=== PATIENT | male | born 1935 | race Caucasian/White ===

== ENCOUNTER → 2017-05-18 | Outpatient (CLI) | payer MEDICARE | END | disposition home or self-care (01) | LOC: CVU 12:09 | PROVIDERS: ATTEND Internal Medicine Cardiovascular Disease | DX: I08.2 Rheumatic disorders of both aortic and tricuspid valves (principal); I65.23 Occlusion and stenosis of bilateral carotid arteries; I10 Essential (primary) hypertension; E78.5 Hyperlipidemia, unspecified; H54.62 Unqualified visual loss, left eye, normal vision right eye; Z86.73 Personal history of transient ischemic attack (TIA), and cerebral infarction without residual deficits | CPT/HCPCS: 93306; 93880 ==

== ENCOUNTER → 2017-11-10 | Outpatient (CLI) | payer MEDICARE | END | disposition home or self-care (01) | LOC: CFH 12:19 | PROVIDERS: ATTEND Internal Medicine Cardiovascular Disease | DX: I35.2 Nonrheumatic aortic (valve) stenosis with insufficiency (principal); G45.9 Transient cerebral ischemic attack, unspecified; I10 Essential (primary) hypertension; E78.5 Hyperlipidemia, unspecified | CPT/HCPCS: 93306 ==

== ENCOUNTER 2017-11-16 09:19 | Day surgery (SDC) | payer MEDICARE ==
[~2017-11-16] VITALS: Ht 180.3 cm; Wt 84.0 kg
[2017-11-16] MEDS ORDERED: LOSA1TAB7 PO (10:17)
[2017-11-16] MEDS ORDERED: ATOR20TA PO (10:17)
[2017-11-16] MEDS ORDERED: CLOP75TA52 PO (10:17)
[2017-11-16] MEDS ORDERED: SODIUM CHLORIDE 0.9% 1,000 ML IV ONE (10:18)
[2017-11-16 10:21] VITALS: BP 137/78
[2017-11-16] MEDS ORDERED: VERAPAMIL 2.5 MG/ML, 2ML ONE (11:41)
[2017-11-16] MEDS ORDERED: FENTANYL PF 100 MCG/2ML ONE (11:41)
[2017-11-16] MEDS ORDERED: MIDAZOLAM 1 MG/ML, 2ML ONE (11:41)
[2017-11-16] MEDS ORDERED: LIDOCAINE 2%, 20ML ONE (11:42)
[2017-11-16] MEDS ORDERED: NITROGLYCERIN 5 MG/ML, 10ML ONE (11:42)
[2017-11-16] MEDS ORDERED: HEPARIN 1,000 UNITS/ML, 10ML ONE (11:42)
[2017-11-16] MEDS ORDERED: DIPHENHYDRAMINE 50 MG/ML, 1ML ONE (11:42)
[2017-11-16] MEDS ORDERED: methylPREDNISolone SOD SUCC 125 MG/2 ML ONE (11:42)
[2017-11-16] MEDS ORDERED: BIVALIRUDIN 250 MG ONE (11:42)
== END 2017-11-16 14:56 ==
LOC: CACL 09:19
PROVIDERS: ATTEND Internal Medicine Cardiovascular Disease
DX: I25.10 Atherosclerotic heart disease of native coronary artery without angina pectoris (principal)
CPT/HCPCS: 93454; 99156; C1769; C1894; J1200; J1644; J2250; J2930; J3010; J3490; Q9967; J0583

== ENCOUNTER → 2017-12-16 | Outpatient (CLI) | payer MEDICARE ==
[~2017-12-16] MED LIST: ATOR20TA PO; CLOP75TA52 PO; DIPHENHYDRAMINE 50 MG/ML, 1ML IVPush PRN; DIPHENHYDRAMINE 50 MG/ML, 1ML ONE; LOSA1TAB7 PO; METOPROLOL 1 MG/ML, 5ML IVPush ONE; METOPROLOL 1 MG/ML, 5ML ONE; OMNIPAQUE 350 MG/ML, 150 ML BOTTLE ONE; methylPREDNISolone SOD SUCC 125 MG/2 ML IVPush PRN; methylPREDNISolone SOD SUCC 125 MG/2 ML ONE
[2017-12-16 14:24] VITALS: BP 151/81
== END | disposition home or self-care (01) ==
LOC: RAD 13:19
PROVIDERS: ATTEND Internal Medicine Cardiovascular Disease
DX: J84.10 Pulmonary fibrosis, unspecified (principal); M48.56XA Collapsed vertebra, not elsewhere classified, lumbar region, initial encounter for fracture; N28.1 Cyst of kidney, acquired; K57.30 Diverticulosis of large intestine without perforation or abscess without bleeding; I35.0 Nonrheumatic aortic (valve) stenosis; M41.86 Other forms of scoliosis, lumbar region
CPT/HCPCS: 71275; 74174; 94060; 94726; 94729; J1200; J2930; Q9967

== ENCOUNTER 2018-01-12 19:37 | Inpatient (IN) | payer MEDICARE ==
[~2018-01-12] VITALS: Ht 180.3 cm; Wt 85.6 kg
[~2018-01-12 19:37] MED LIST changes: +ASPI-621 PO; -DIPHENHYDRAMINE 50 MG/ML, 1ML IVPush PRN; -DIPHENHYDRAMINE 50 MG/ML, 1ML ONE; -METOPROLOL 1 MG/ML, 5ML IVPush ONE; -METOPROLOL 1 MG/ML, 5ML ONE; -OMNIPAQUE 350 MG/ML, 150 ML BOTTLE ONE; -methylPREDNISolone SOD SUCC 125 MG/2 ML IVPush PRN; -methylPREDNISolone SOD SUCC 125 MG/2 ML ONE
[2018-01-12] MEDS ORDERED: ASPIRIN 81 MG TABLET CHEW PO ONE (20:00)
[2018-01-12] MEDS ORDERED: SODIUM CHLORIDE FLUSH 10ML SYR IVF ONE (20:00)
[2018-01-12 20:11] LABS: MEAN CORPUSCULAR HEMOGLOBIN 31.4 pg (27.5-34.5); MEAN CORPUSCULAR HGB CONC 33.5 g/dL (33.2-36.2); MEAN CORPUSCULAR VOLUME 93.8 fL (81-97); MEAN PLATELET VOLUME 7.2 fL (7.4-10.4); PLATELET COUNT 565 x10^3/uL (130-400); RED BLOOD COUNT 5.55 x10^6/uL (4.38-5.82); RED CELL DISTRIBUTION WIDTH 15.1 % (9.4-14.8)
[2018-01-12 20:19] LABS: INTERNATIONAL NORMALIZED RATIO 1.06 (0.93-1.1)
[2018-01-12 20:21] LABS: ALANINE AMINOTRANSFERASE 24 U/L (12-78); ALBUMIN 3.8 g/dL (3.4-5.0); ANION GAP 6 mmol/L (5-15); CALCIUM 8.9 mg/dL (8.5-10.1); CHLORIDE 110 mmol/L (98-107); CREATININE 1.27 mg/dL (0.7-1.3)
[2018-01-12 20:25] LABS: ALKALINE PHOSPHATASE 140 U/L (45-117); TOTAL PROTEIN 7.3 g/dL (6.4-8.2)
[2018-01-12] MEDS ORDERED: ASPIRIN 81 MG TABLET CHEW ONE (20:25)
[2018-01-12 20:39] LABS: MD YES
[2018-01-12 20:41] LABS: BAND#(MANUAL) 0.85 x10^3/uL; BANDS%(MANUAL) 4 % (0-7); LYMPH#(MANUAL) 2.56 x10^3/uL (1-3.4); LYMPHS% (MANUAL) 12 % (22-44); MONOS#(MANUAL) 0.21 x10^3/uL (0.3-2.7); MONOS% (MANUAL) 1 % (2-9); SEG#(MANUAL) 17.68 x10^3/uL (1.8-6.8); SEGS% (MANUAL) 83 % (42-75)
[2018-01-12 20:42] LABS: <PLATELET ESTIMATE> INCREASED; <PLT MORPHOLOGY> NORMAL PLT MORPH; <RBC MORPHOLOGY> NORMAL
[2018-01-12] MEDS ORDERED: OMNIPAQUE 350 MG/ML, 100ML BOTTLE ONE (21:27)
[2018-01-12] MEDS ORDERED: SODIUM CHLORIDE FLUSH 10ML SYR IVF PRN (22:00)
[2018-01-12] MEDS ORDERED: morphine SULFATE 10 MG/ML, 1ML IVPush PRN (22:30)
[2018-01-12] MEDS ORDERED: POLYETHYLENE GLYCOL 17 GM PACKET PO PRN (22:30)
[2018-01-12] MEDS ORDERED: ACETAMINOPHEN 325 MG TABLET PO PRN (22:30)
[2018-01-12] MEDS ORDERED: hydrALAzine 20 MG/ML, 1ML IVPush PRN (22:30)
[2018-01-12] MEDS ORDERED: ENALAPRILAT 1.25 MG/ML, 2ML IVPush PRN (22:30)
[2018-01-12] MEDS ORDERED: ONDANSETRON 2MG/ML, 2ML IVPush PRN (22:30)
[2018-01-12] MEDS ORDERED: OXYcodone IR 5MG TABLET PO PRN (22:30)
[2018-01-12] MEDS ORDERED: BISACODYL 10 MG SUPP PR PRN (22:30)
[2018-01-12 22:32] VITALS: BP 178/81
[2018-01-12] MEDS ORDERED: CARVEDILOL 6.25 MG TABLET ONE (22:49)
[2018-01-12] MEDS ORDERED: ATORVASTATIN 20 MG TABLET ONE (22:51)
[2018-01-12 22:52] LABS: FREE T4 (FREE THYROXINE) 1.1 ng/dL (0.76-1.46); THYROID STIMULATING HORMONE 1.85 mIU/L (0.358-3.740)
[2018-01-12] MEDS: HEPARIN 5,000 UNITS/ML, 1ML SQ SCH (23:05)
[2018-01-12] MEDS: CARVEDILOL 6.25 MG TABLET PO SCH (23:05)
[2018-01-12] MEDS: ATORVASTATIN 20 MG TABLET PO SCH (23:05)
[2018-01-12 23:10] LABS: HEMOGLOBIN A1C 5.6 % (4.2-6.3)
[2018-01-12 23:31] VITALS: BP 163/82
[2018-01-13 01:13] VITALS: BP 138/77
[2018-01-13 01:26] LABS: MICROSCOPIC NOT IND
[2018-01-13 01:36] LABS: CULTURE INDICATED? NO
[2018-01-13 05:46] LABS: MEAN CORPUSCULAR HGB CONC 33.7 g/dL (33.2-36.2); MEAN CORPUSCULAR VOLUME 92.1 fL (81-97); MEAN PLATELET VOLUME 7.2 fL (7.4-10.4); PLATELET COUNT 489 x10^3/uL (130-400); RED BLOOD COUNT 5.09 x10^6/uL (4.38-5.82); RED CELL DISTRIBUTION WIDTH 15.2 % (9.4-14.8)
[2018-01-13 05:51] LABS: ALANINE AMINOTRANSFERASE 31 U/L (12-78); ALBUMIN 3.1 g/dL (3.4-5.0); ANION GAP 9 mmol/L (5-15); CALCIUM 8.2 mg/dL (8.5-10.1); CHLORIDE 109 mmol/L (98-107)
[2018-01-13 06:06] LABS: ALKALINE PHOSPHATASE 129 U/L (45-117); BILIRUBIN,TOTAL 1.1 mg/dL (0.2-1.0); CHOL/HDL RATIO 2.5; CHOLESTEROL, TOTAL 140 mg/dL (140-239); CREATININE 1.04 mg/dL (0.7-1.3); HDL CHOL % 41 % (26-37); HDL CHOLESTEROL (DIRECT) 57 mg/dL (40-60); LDL CHOLESTEROL,CALCULATED 55 mg/dL (54-169); TOTAL PROTEIN 5.9 g/dL (6.4-8.2); TRIGLYCERIDES 139 mg/dL (50-200); VLDL CHOLESTEROL 28 mg/dL (0-25)
[2018-01-13 06:07] LABS: BASOPHILS # (AUTO) 0.08 x10^3/uL (0-0.1); BASOPHILS % (AUTO) 0 % (0-1); EOSINOPHILS # (AUTO) 0.05 x10^3/uL (0-0.4); EOSINOPHILS % (AUTO) 0 % (1-7); LYMPHOCYTES # (AUTO) 2.38 x10^3/uL (1-3.4); LYMPHOCYTES % (AUTO) 11 % (22-44); MD SCAN; MONOCYTES # (AUTO) 1.91 x10^3/uL (0.2-0.8); MONOCYTES % (AUTO) 9 % (2-9); NEUTROPHILS # (AUTO) 17.35 x10^3/uL (1.8-6.8); NEUTROPHILS % (AUTO) 80 % (42-75)
[2018-01-13] MEDS: CARVEDILOL 6.25 MG TABLET PO SCH ×2 (06:33→17:15)
[2018-01-13] MEDS: HEPARIN 5,000 UNITS/ML, 1ML SQ SCH (06:33)
[2018-01-13] MEDS: LOSARTAN 50MG TABLET PO SCH (08:30)
[2018-01-13] MEDS: ASPIRIN 81 MG TABLET EC PO SCH (08:31)
[2018-01-13] MEDS: HYDROCHLOROTHIAZIDE 12.5 MG CAPSULE PO SCH (08:31)
[2018-01-13] MEDS: SENNA/DOCUSATE TABLET PO SCH (08:32)
[2018-01-13 08:36] VITALS: BP 101/61
[2018-01-13] MEDS ORDERED: CLOPIDOGREL 75 MG TABLET PO SCH (09:00)
[2018-01-13] MEDS ORDERED: MAGNESIUM SULFATE PMX 2GM/50ML 50 ML IV ONE (09:00)
[2018-01-13] MEDS ORDERED: POTASSIUM CHLORIDE 20 MEQ TAB.ER.PRT PO ONE (09:00)
[2018-01-13] MEDS ORDERED: AMIODARONE 150 MG in DEXTROSE 5% 100 ML IV ONE (09:00)
[2018-01-13] MEDS ORDERED: FILTER 0.22 MICRON IV SCH (09:00)
[2018-01-13 09:23] LABS: TROPONIN I 0.706 ng/mL (0.000-0.045)
[2018-01-13] MEDS: FUROSEMIDE 20 MG/2 ML IV SCH ×2 (09:35→17:14)
[2018-01-13] MEDS: AMIODARONE 900 MG in DEXTROSE 5% 482 ML IV PRN ×3 (09:57→17:07)
[2018-01-13] MEDS ORDERED: MAALOX/HYOSCYAMINE/LIDOCAINE 45 ML BTL PO PRN (11:00)
[2018-01-13] MEDS: PANTOPRAZOLE 20MG TABLET PO SCH ×2 (11:10→23:32)
[2018-01-13 11:56] LABS: RAPID INFLUENZA A Negative (Negative); RAPID INFLUENZA B Negative (Negative)
[2018-01-13 17:15] VITALS: BP 116/71
[2018-01-13] MEDS: RIVAROXABAN 20 MG TABLET PO SCH (17:15)
[2018-01-13 18:26] VITALS: BP 114/62
[2018-01-13] MEDS: ATORVASTATIN 20 MG TABLET PO SCH (21:27)
[2018-01-14 01:30] VITALS: BP 123/72
[2018-01-14 05:49] LABS: MEAN CORPUSCULAR HEMOGLOBIN 31.3 pg (27.5-34.5); MEAN CORPUSCULAR HGB CONC 33.9 g/dL (33.2-36.2); MEAN CORPUSCULAR VOLUME 92.3 fL (81-97); MEAN PLATELET VOLUME 7.3 fL (7.4-10.4); PLATELET COUNT 489 x10^3/uL (130-400); RED BLOOD COUNT 4.86 x10^6/uL (4.38-5.82); RED CELL DISTRIBUTION WIDTH 14.6 % (9.4-14.8)
[2018-01-14 05:50] LABS: CHLORIDE 109 mmol/L (98-107)
[2018-01-14] MEDS: CARVEDILOL 6.25 MG TABLET PO SCH ×2 (05:53→17:22)
[2018-01-14 06:17] LABS: ANION GAP 6 mmol/L (5-15); CALCIUM 8.8 mg/dL (8.5-10.1)
[2018-01-14 06:39] LABS: MD YES
[2018-01-14 06:41] LABS: <RBC MORPHOLOGY> NORMAL; BAND#(MANUAL) 0.17 x10^3/uL; BANDS%(MANUAL) 1 % (0-7); BASOS#(MANUAL) 0.17 x10^3/uL (0-0.1); BASOS% (MANUAL) 1 % (0-1); EOS#(MANUAL) 0.34 x10^3/uL (0.0-0.4); EOS% (MANUAL) 2 % (1-7); LYMPH#(MANUAL) 3.21 x10^3/uL (1-3.4); LYMPHS% (MANUAL) 19 % (22-44); MONOS#(MANUAL) 0.51 x10^3/uL (0.3-2.7); MONOS% (MANUAL) 3 % (2-9); MYELOCYTES# (MANUAL) 0.17 x10^3/uL (0-0); MYELOCYTES% (MANUAL) 1 % (0-0); REACTIVE LYMPHS # (MANUAL) 0.17 x10^3/uL (0-0); REACTIVE LYMPHS % (MANUAL) 1 % (0-0); SEG#(MANUAL) 12.17 x10^3/uL (1.8-6.8); SEGS% (MANUAL) 72 % (42-75)
[2018-01-14 06:42] LABS: <PLATELET ESTIMATE> INCREASED; <PLT MORPHOLOGY> NORMAL PLT MORPH
[2018-01-14 07:43] VITALS: BP 138/76
[2018-01-14] MEDS: ASPIRIN 81 MG TABLET EC PO SCH (10:10)
[2018-01-14] MEDS: LOSARTAN 50MG TABLET PO SCH (10:10)
[2018-01-14] MEDS: PANTOPRAZOLE 20MG TABLET PO SCH ×2 (10:11→22:02)
[2018-01-14] MEDS: HYDROCHLOROTHIAZIDE 12.5 MG CAPSULE PO SCH (10:11)
[2018-01-14] MEDS: SENNA/DOCUSATE TABLET PO SCH (10:11)
[2018-01-14] MEDS: AMIODARONE 200 MG TABLET PO SCH ×2 (11:04→22:02)
[2018-01-14 13:57] VITALS: BP 122/67
[2018-01-14] MEDS ORDERED: FUROSEMIDE 20 MG/2 ML IV ONE (15:30)
[2018-01-14] MEDS ORDERED: POTASSIUM CHLORIDE 20 MEQ TAB.ER.PRT PO ONE (15:30)
[2018-01-14] MEDS: RIVAROXABAN 20 MG TABLET PO SCH (17:22)
[2018-01-14 18:59] VITALS: BP 115/67
[2018-01-14] MEDS: ATORVASTATIN 20 MG TABLET PO SCH (22:02)
[2018-01-15 01:49] VITALS: BP 111/58
[2018-01-15 05:55] LABS: BASOPHILS # (AUTO) 0.07 x10^3/uL (0-0.1); BASOPHILS % (AUTO) 0 % (0-1); EOSINOPHILS # (AUTO) 0.28 x10^3/uL (0-0.4); EOSINOPHILS % (AUTO) 2 % (1-7); LYMPHOCYTES # (AUTO) 2.76 x10^3/uL (1-3.4); LYMPHOCYTES % (AUTO) 18 % (22-44); MD NO; MEAN CORPUSCULAR HEMOGLOBIN 31.2 pg (27.5-34.5); MEAN CORPUSCULAR HGB CONC 33.5 g/dL (33.2-36.2); MEAN PLATELET VOLUME 7.6 fL (7.4-10.4); MONOCYTES # (AUTO) 1.32 x10^3/uL (0.2-0.8); MONOCYTES % (AUTO) 9 % (2-9); NEUTROPHILS # (AUTO) 11.15 x10^3/uL (1.8-6.8); NEUTROPHILS % (AUTO) 72 % (42-75); PLATELET COUNT 546 x10^3/uL (130-400); RED BLOOD COUNT 4.78 x10^6/uL (4.38-5.82); RED CELL DISTRIBUTION WIDTH 14.5 % (9.4-14.8)
[2018-01-15 05:58] LABS: ANION GAP 8 mmol/L (5-15); CALCIUM 8.3 mg/dL (8.5-10.1); CHLORIDE 106 mmol/L (98-107)
[2018-01-15 05:59] LABS: CREATININE 1.23 mg/dL (0.7-1.3)
[2018-01-15] MEDS: CARVEDILOL 6.25 MG TABLET PO SCH (06:14)
[2018-01-15 08:00] VITALS: BP 132/72
[2018-01-15] MEDS: HYDROCHLOROTHIAZIDE 12.5 MG CAPSULE PO SCH (08:41)
[2018-01-15] MEDS: LOSARTAN 50MG TABLET PO SCH (08:41)
[2018-01-15] MEDS: ASPIRIN 81 MG TABLET EC PO SCH (08:41)
[2018-01-15] MEDS: SENNA/DOCUSATE TABLET PO SCH (08:42)
[2018-01-15] MEDS: PANTOPRAZOLE 20MG TABLET PO SCH (08:43)
[2018-01-15] MEDS ORDERED: AMIO200T42 PO (09:16)
[2018-01-15] MEDS ORDERED: RIVA20TA PO (09:16)
[2018-01-15] MEDS ORDERED: CARV3.12 PO (09:16)
[2018-01-15] MEDS ORDERED: AMIODARONE 200 MG TABLET PO SCH (09:30)
== END 2018-01-15 11:24 | disposition home or self-care (01) | DRG 308 ==
LOC: ED 20:54 → EDIP 21:49 → 5SO 22:55
PROVIDERS: ADMIT Internal Medicine; ATTEND Family Medicine
DX: I48.91 Unspecified atrial fibrillation (principal); I50.33 Acute on chronic diastolic (congestive) heart failure; D68.59 Other primary thrombophilia; E83.42 Hypomagnesemia; Z95.2 Presence of prosthetic heart valve; I11.0 Hypertensive heart disease with heart failure; D72.829 Elevated white blood cell count, unspecified; E74.39 Other disorders of intestinal carbohydrate absorption; G43.109 Migraine with aura, not intractable, without status migrainosus; E78.5 Hyperlipidemia, unspecified; K21.9 Gastro-esophageal reflux disease without esophagitis; Z79.82 Long term (current) use of aspirin; Z86.73 Personal history of transient ischemic attack (TIA), and cerebral infarction without residual deficits; Z87.891 Personal history of nicotine dependence; R07.2 Precordial pain; R00.1 Bradycardia, unspecified
CPT/HCPCS: 36415; 71045; 71046; 71275; 80048; 80053; 80061; 81003; 83036; 83605; 83735; 83880; 84145; 84439; 84443; 84484; 85025; 85610; 85730; 87040; 87400; 93005; 99285; J1644; Q9967; J0282; J1940; J3475; J7060

== ENCOUNTER 2018-02-04 22:21 | Emergency (ER) | payer MEDICARE ==
[~2018-02-04] VITALS: Ht 182.9 cm; Wt 82.0 kg
[~2018-02-04 22:21] MED LIST changes: -GADOBUTROL 7.5 MMOL/7.5 ML PFS ONE; -OMEP10SU2 PO
[2018-02-04] MEDS ORDERED: OMEP10SU2 PO (23:49)
[2018-02-05 00:08] LABS: MEAN CORPUSCULAR HEMOGLOBIN 30.2 pg (27.5-34.5); MEAN CORPUSCULAR VOLUME 91.4 fL (81-97); MEAN PLATELET VOLUME 7.1 fL (7.4-10.4); PLATELET COUNT 789 x10^3/uL (130-400); RED BLOOD COUNT 5.93 x10^6/uL (4.38-5.82); RED CELL DISTRIBUTION WIDTH 15.4 % (9.4-14.8)
[2018-02-05 00:13] LABS: INTERNATIONAL NORMALIZED RATIO 1.4 (0.93-1.1); PROTHROMBIN TIME 14.5 Seconds (9.6-11.5)
[2018-02-05 00:16] LABS: ALANINE AMINOTRANSFERASE 23 U/L (12-78); ALBUMIN 3.5 g/dL (3.4-5.0); ANION GAP 8 mmol/L (5-15); CALCIUM 8.9 mg/dL (8.5-10.1); CHLORIDE 108 mmol/L (98-107)
[2018-02-05 00:19] LABS: ALKALINE PHOSPHATASE 164 U/L (45-117); BILIRUBIN,TOTAL 0.5 mg/dL (0.2-1.0); TOTAL PROTEIN 7.3 g/dL (6.4-8.2)
[2018-02-05 00:50] LABS: BASOPHILS # (AUTO) 0.04 x10^3/uL (0-0.1); BASOPHILS % (AUTO) 0 % (0-1); EOSINOPHILS # (AUTO) 0.27 x10^3/uL (0-0.4); EOSINOPHILS % (AUTO) 1 % (1-7); LYMPHOCYTES # (AUTO) 3.43 x10^3/uL (1-3.4); LYMPHOCYTES % (AUTO) 17 % (22-44); MD SCAN; MONOCYTES # (AUTO) 1.45 x10^3/uL (0.2-0.8); MONOCYTES % (AUTO) 7 % (2-9); NEUTROPHILS # (AUTO) 14.89 x10^3/uL (1.8-6.8); NEUTROPHILS % (AUTO) 74 % (42-75)
[2018-02-05 01:50] VITALS: BP 145/61
== END 2018-02-05 02:08 | disposition home or self-care (01) ==
LOC: ED 23:59
DX: I63.511 Cerebral infarction due to unspecified occlusion or stenosis of right middle cerebral artery (principal); D72.829 Elevated white blood cell count, unspecified; E78.5 Hyperlipidemia, unspecified; I10 Essential (primary) hypertension; I48.91 Unspecified atrial fibrillation; Z79.82 Long term (current) use of aspirin; Z95.2 Presence of prosthetic heart valve
CPT/HCPCS: 36415; 70450; 80053; 85025; 85610; 85730; 93005; 99291; 99292

== ENCOUNTER → 2018-02-04 | Outpatient (CLI) | payer MEDICARE ==
[~2018-02-04] MED LIST changes: +AMIO200T42 PO; +CARV3.12 PO; +GADOBUTROL 7.5 MMOL/7.5 ML PFS ONE; +OMEP10SU2 PO; +RIVA20TA PO
== END | disposition home or self-care (01) ==
LOC: RAD 11:09
PROVIDERS: ATTEND Psychiatry & Neurology Neurology
DX: G45.9 Transient cerebral ischemic attack, unspecified (principal); R90.82 White matter disease, unspecified
CPT/HCPCS: 70544; 70547; 70553; A9585

== ENCOUNTER → 2019-01-17 | Outpatient (CLI) | payer MEDICARE ==
[~2019-01-17] MED LIST changes: -ASPI-621 PO; +ASPI81TA45 PO; +OMEP10SU2 PO
== END | disposition home or self-care (01) ==
LOC: CVU 10:37
PROVIDERS: ATTEND Nurse Practitioner Family
DX: Z48.812 Encounter for surgical aftercare following surgery on the circulatory system (principal); I11.9 Hypertensive heart disease without heart failure; E78.5 Hyperlipidemia, unspecified; Z95.0 Presence of cardiac pacemaker; Z79.01 Long term (current) use of anticoagulants
CPT/HCPCS: 93306

== ENCOUNTER 2019-01-27 10:45 | Inpatient (IN) | payer MEDICARE ==
[~2019-01-27] VITALS: Ht 180.3 cm; Wt 113.4 kg
[~2019-01-27 10:45] MED LIST changes: +ATROPINE SYRINGE 0.1 MG/ML, 10ML ONE; +DEXTROSE 50%, 50ML SYRINGE ONE
[2019-01-27] MEDS ORDERED: ASPI-650 PO (14:00)
[2019-01-27] MEDS ORDERED: WARF-36 PO (14:00)
[2019-01-27] MEDS ORDERED: WARF2.5T32 PO (14:00)
[2019-01-27] MEDS ORDERED: MIDAZOLAM 1 MG/ML, 2ML ONE ×2 (14:12→15:17)
[2019-01-27] MEDS ORDERED: VANCOMYCIN 500 MG ONE (14:13)
[2019-01-27] MEDS ORDERED: FENTANYL PF 100 MCG/2ML ONE (14:13)
[2019-01-27] MEDS ORDERED: DIPHENHYDRAMINE 50 MG/ML, 1ML ONE (14:13)
[2019-01-27] MEDS ORDERED: LIDOCAINE 1%, 20ML ONE (14:13)
[2019-01-27] MEDS ORDERED: VANCOMYCIN PMX 1GM/200ML 200 ML ONE (14:13)
[2019-01-27 14:36] VITALS: BP 174/86
[2019-01-27 14:48] LABS: MEAN CORPUSCULAR HEMOGLOBIN 28.1 pg (27.5-34.5); MEAN CORPUSCULAR HGB CONC 33.2 g/dL (33.2-36.2); MEAN CORPUSCULAR VOLUME 84.6 fL (81-97); MEAN PLATELET VOLUME 7.2 fL (7.4-10.4); PLATELET COUNT 913 x10^3/uL (130-400); RED BLOOD COUNT 6.44 x10^6/uL (4.38-5.82); RED CELL DISTRIBUTION WIDTH 15.1 % (9.4-14.8)
[2019-01-27 14:57] LABS: ALANINE AMINOTRANSFERASE 22 U/L (12-78); ALBUMIN 3.9 g/dL (3.4-5.0); ANION GAP 5 mmol/L (5-15); CALCIUM 8.9 mg/dL (8.5-10.1); CHLORIDE 113 mmol/L (98-107)
[2019-01-27 14:59] LABS: ALKALINE PHOSPHATASE 159 U/L (45-117); BILIRUBIN,TOTAL 1.3 mg/dL (0.2-1.0); TOTAL PROTEIN 6.8 g/dL (6.4-8.2)
[2019-01-27 15:01] LABS: INTERNATIONAL NORMALIZED RATIO 1.26 (0.93-1.1); PROTHROMBIN TIME 13.1 Seconds (9.6-11.5)
[2019-01-27 15:10] LABS: MD YES
[2019-01-27 15:12] LABS: <PLATELET ESTIMATE> INCREASED; <PLT MORPHOLOGY> NORMAL PLT MORPH; <RBC MORPHOLOGY> NORMAL; BAND#(MANUAL) 0.18 x10^3/uL; BANDS%(MANUAL) 1 % (0-7); BASOS#(MANUAL) 0.18 x10^3/uL (0-0.1); BASOS% (MANUAL) 1 % (0-1); EOS#(MANUAL) 0.53 x10^3/uL (0.0-0.4); EOS% (MANUAL) 3 % (1-7); LYMPH#(MANUAL) 3.36 x10^3/uL (1-3.4); LYMPHS% (MANUAL) 19 % (22-44); MONOS#(MANUAL) 0.89 x10^3/uL (0.3-2.7); MONOS% (MANUAL) 5 % (2-9); SEG#(MANUAL) 12.57 x10^3/uL (1.8-6.8); SEGS% (MANUAL) 71 % (42-75)
[2019-01-27] MEDS ORDERED: LIDOCAINE 2%, 20ML ONE (15:27)
[2019-01-27] MEDS ORDERED: ONDANSETRON 2MG/ML, 2ML IV PRN (16:30)
[2019-01-27] MEDS ORDERED: ACETAMINOPHEN 325 MG TABLET PO PRN (16:30)
[2019-01-27] MEDS ORDERED: HYDROcodone/APAP 5/325 TABLET PO PRN (16:30)
[2019-01-27] MEDS ORDERED: HOLD MEDICATION MC PRN (16:30)
[2019-01-27] MEDS ORDERED: ZOLPIDEM 5MG TABLET PO PRN (16:30)
[2019-01-27] MEDS ORDERED: SODIUM CHLORIDE 0.9% 500 ML IV SCH (17:30)
[2019-01-27] MEDS: ATORVASTATIN 20 MG TABLET PO SCH (18:00)
[2019-01-27] MEDS: SODIUM CHLORIDE 0.9% 1,000 ML IV SCH ×2 (18:08→21:51)
[2019-01-27 18:50] VITALS: BP 103/57
[2019-01-27] MEDS: DEXTROSE 50%, 50ML SYRINGE IVPush PRN ×3 (18:51→22:46)
[2019-01-27] MEDS ORDERED: DEXTROSE 4 GM TAB.CHEW PO PRN (19:00)
[2019-01-27] MEDS ORDERED: SODIUM CHLORIDE 0.9%, 250ML IVBOLUS ONE ×2 (19:00→20:00)
[2019-01-27] MEDS ORDERED: GLUCAGON 1 MG IM PRN (19:00)
[2019-01-27] MEDS ORDERED: DEXTROSE 50%, 50ML SYRINGE IVPush ONE ×2 (19:00→20:00)
[2019-01-27] MEDS ORDERED: DEXTROSE 50%, 50ML SYRINGE ONE (19:06)
[2019-01-27] MEDS: D5%-0.9% NACL 1,000 ML IV SCH (19:42)
[2019-01-27] MEDS: SODIUM CHLORIDE FLUSH 10ML SYR IVF SCH ×2 (21:00)
[2019-01-27] MEDS ORDERED: NACL IV SCH (21:30)
[2019-01-27] MEDS ORDERED: D5 IV SCH (21:30)
[2019-01-27] MEDS ORDERED: D5%-0.9% NACL 1,000 ML IV SCH (21:30)
[2019-01-27] MEDS: ASPIRIN 325 MG TABLET EC PO SCH (23:02)
[2019-01-28] VITALS (7 sets, daily range): BP systolic 89–118; BP diastolic 51–66
[2019-01-28] MEDS ORDERED: VANCOMYCIN PMX 1GM/200ML 200 ML IVPB SCH (02:30)
[2019-01-28] MEDS: LOSARTAN 50MG TABLET PO SCH (09:00)
[2019-01-28] MEDS ORDERED: HYDROCHLOROTHIAZIDE T PO SCH (09:00)
[2019-01-28] MEDS: SODIUM CHLORIDE FLUSH 10ML SYR IVF SCH ×4 (09:00→21:00)
[2019-01-28] MEDS ORDERED: [UNRECOGNIZED DRUG - OTHER] PO SCH (09:00)
[2019-01-28] MEDS ORDERED: LOSARTAN PO SCH (09:00)
[2019-01-28] MEDS ORDERED: DIGOXIN 0.25 MG/ML, 2ML ONE (09:36)
[2019-01-28] MEDS: D5%-0.9% NACL 1,000 ML IV SCH ×2 (09:45→14:11)
[2019-01-28] MEDS ORDERED: DIGOXIN 0.25 MG/ML, 2ML IVPush ONE ×2 (10:00→15:30)
[2019-01-28] MEDS: PANTOPROZOLE 40MG TABLET PO SCH (10:04)
[2019-01-28] MEDS: HYDROCHLOROTHIAZIDE 12.5 MG CAPSULE PO SCH (10:04)
[2019-01-28] MEDS: ASPIRIN 81 MG TABLET EC PO SCH (10:04)
[2019-01-28 11:26] LABS: CALCIUM 8.1 mg/dL (8.5-10.1); CREATININE 2.77 mg/dL (0.7-1.3)
[2019-01-28 11:29] LABS: ANION GAP 6 mmol/L (5-15)
[2019-01-28 11:31] LABS: CHLORIDE 117 mmol/L (98-107)
[2019-01-28] MEDS: WARFARIN 5 MG TABLET PO-COUM SCH (17:25)
[2019-01-28] MEDS: ATORVASTATIN 20 MG TABLET PO SCH (17:26)
[2019-01-28] MEDS ORDERED: AMIODARONE 50 MG/ML, 3ML IVPush ONE (21:00)
[2019-01-28] MEDS ORDERED: AMIODARONE 150 MG in DEXTROSE 5% 100 ML IV ONE (21:30)
[2019-01-28] MEDS ORDERED: FILTER 0.22 MICRON IV ONE (21:30)
[2019-01-28] MEDS ORDERED: SODIUM CHLORIDE 0.9%, 250ML IVBOLUS ONE (22:00)
[2019-01-29] MEDS: ASPIRIN 325 MG TABLET EC PO SCH ×2 (00:31→20:34)
[2019-01-29 01:10] VITALS: BP 114/68
[2019-01-29] MEDS: D5%-0.9% NACL 1,000 ML IV SCH ×2 (01:30→11:05)
[2019-01-29 07:19] VITALS: BP 132/71
[2019-01-29] MEDS: SODIUM CHLORIDE FLUSH 10ML SYR IVF SCH ×4 (09:00→20:34)
[2019-01-29] MEDS: ASPIRIN 81 MG TABLET EC PO SCH (09:08)
[2019-01-29] MEDS: PANTOPROZOLE 40MG TABLET PO SCH (09:08)
[2019-01-29] MEDS: HYDROCHLOROTHIAZIDE 12.5 MG CAPSULE PO SCH (09:09)
[2019-01-29] MEDS: LOSARTAN 50MG TABLET PO SCH (09:10)
[2019-01-29 13:58] VITALS: BP 159/79
[2019-01-29 15:43] LABS: INTERNATIONAL NORMALIZED RATIO 1.35 (0.93-1.1)
[2019-01-29 15:46] LABS: ALBUMIN 2.9 g/dL (3.4-5.0); ANION GAP 8 mmol/L (5-15); CALCIUM 8.5 mg/dL (8.5-10.1); CHLORIDE 116 mmol/L (98-107)
[2019-01-29 15:50] LABS: ALANINE AMINOTRANSFERASE 81 U/L (12-78); ALKALINE PHOSPHATASE 135 U/L (45-117); BILIRUBIN,TOTAL 1.4 mg/dL (0.2-1.0); CREATINE KINASE, TOTAL 421 U/L (39-308); CREATININE 1.64 mg/dL (0.7-1.3); TOTAL PROTEIN 5.7 g/dL (6.4-8.2)
[2019-01-29 16:01] LABS: MD YES; MEAN CORPUSCULAR HEMOGLOBIN 27.9 pg (27.5-34.5); MEAN CORPUSCULAR VOLUME 84.5 fL (81-97); MEAN PLATELET VOLUME 7.8 fL (7.4-10.4); PLATELET COUNT 613 x10^3/uL (130-400); RED CELL DISTRIBUTION WIDTH 15.6 % (9.4-14.8)
[2019-01-29 16:08] LABS: EOS#(MANUAL) 0.27 x10^3/uL (0.0-0.4); EOS% (MANUAL) 1 % (1-7); MONOS#(MANUAL) 1.08 x10^3/uL (0.3-2.7); MONOS% (MANUAL) 4 % (2-9); REACTIVE LYMPHS # (MANUAL) 0.54 x10^3/uL (0-0); REACTIVE LYMPHS % (MANUAL) 2 % (0-0)
[2019-01-29 16:11] LABS: LYMPH#(MANUAL) 1.36 x10^3/uL (1-3.4); LYMPHS% (MANUAL) 5 % (22-44); SEG#(MANUAL) 23.85 x10^3/uL (1.8-6.8); SEGS% (MANUAL) 88 % (42-75)
[2019-01-29 16:14] LABS: <PLATELET ESTIMATE> INCREASED; <PLT MORPHOLOGY> NORMAL PLT MORPH; <RBC MORPHOLOGY> NORMAL; SMUDGE CELLS 1+
[2019-01-29 16:42] LABS: MICROSCOPIC INDICATED
[2019-01-29 16:50] LABS: CULTURE INDICATED? NO
[2019-01-29] MEDS: ATORVASTATIN 20 MG TABLET PO SCH (18:05)
[2019-01-29] MEDS: WARFARIN 5 MG TABLET PO-COUM SCH (18:05)
[2019-01-29 19:46] VITALS: BP 154/71
[2019-01-30] MEDS: D5%-0.9% NACL 1,000 ML IV SCH ×2 (00:47→11:41)
[2019-01-30 00:49] VITALS: BP 149/77
[2019-01-30 05:54] LABS: MEAN CORPUSCULAR HEMOGLOBIN 27.8 pg (27.5-34.5); MEAN CORPUSCULAR HGB CONC 32.9 g/dL (33.2-36.2); MEAN CORPUSCULAR VOLUME 84.6 fL (81-97); MEAN PLATELET VOLUME 7.7 fL (7.4-10.4); PLATELET COUNT 617 x10^3/uL (130-400); RED CELL DISTRIBUTION WIDTH 15.4 % (9.4-14.8)
[2019-01-30 06:11] LABS: ANION GAP 7 mmol/L (5-15); CALCIUM 8.4 mg/dL (8.5-10.1); CHLORIDE 119 mmol/L (98-107)
[2019-01-30 06:28] LABS: CREATININE 1.31 mg/dL (0.7-1.3)
[2019-01-30 07:04] LABS: MD YES
[2019-01-30 07:58] VITALS: BP 163/90
[2019-01-30] MEDS ORDERED: MAGNESIUM SULFATE PMX 2GM/50ML 50 ML IV ONE (08:00)
[2019-01-30 08:04] LABS: <PLATELET ESTIMATE> INCREASED; <PLT MORPHOLOGY> NORMAL PLT MORPH; <RBC MORPHOLOGY> NORMAL; BANDS%(MANUAL) 7 % (0-7); EOS#(MANUAL) 0.77 x10^3/uL (0.0-0.4); EOS% (MANUAL) 3 % (1-7); LYMPH#(MANUAL) 1.54 x10^3/uL (1-3.4); LYMPHS% (MANUAL) 6 % (22-44); MONOS#(MANUAL) 0.77 x10^3/uL (0.3-2.7); MONOS% (MANUAL) 3 % (2-9); SEG#(MANUAL) 20.82 x10^3/uL (1.8-6.8); SEGS% (MANUAL) 81 % (42-75)
[2019-01-30] MEDS: PANTOPROZOLE 40MG TABLET PO SCH (09:00)
[2019-01-30] MEDS: ASPIRIN 81 MG TABLET EC PO SCH (09:00)
[2019-01-30] MEDS: SODIUM CHLORIDE FLUSH 10ML SYR IVF SCH ×2 (09:00→21:00)
[2019-01-30] MEDS ORDERED: ALBUTEROL SULFATE 2.5 MG/3 ML ONE ×2 (11:21→14:37)
[2019-01-30 15:28] VITALS: BP 165/89
[2019-01-30] MEDS ORDERED: ALBUTEROL SULFATE 2.5 MG/3 ML NPPB PRN (18:00)
[2019-01-30] MEDS ORDERED: ALBUTEROL SULFATE 2.5 MG/3 ML NPPB SCH (19:00)
[2019-01-30] MEDS: ALBUTEROL SULFATE 2.5 MG/3 ML NPPB SCH (19:20)
[2019-01-30 20:59] VITALS: BP 150/74
[2019-01-30] MEDS: ATORVASTATIN 20 MG TABLET PO SCH (22:01)
[2019-01-30] MEDS: WARFARIN 5 MG TABLET PO-COUM SCH (22:01)
[2019-01-30] MEDS: ENOXAPARIN 100 MG/ML SQ SCH (22:36)
[2019-01-31 01:08] VITALS: BP 164/83
[2019-01-31] MEDS: D5%-0.9% NACL 1,000 ML IV SCH (05:36)
[2019-01-31 05:47] LABS: MEAN CORPUSCULAR HEMOGLOBIN 28.4 pg (27.5-34.5); MEAN CORPUSCULAR HGB CONC 34.1 g/dL (33.2-36.2); MEAN CORPUSCULAR VOLUME 83.3 fL (81-97); MEAN PLATELET VOLUME 7.7 fL (7.4-10.4); PLATELET COUNT 664 x10^3/uL (130-400); RED BLOOD COUNT 5.81 x10^6/uL (4.38-5.82); RED CELL DISTRIBUTION WIDTH 15.6 % (9.4-14.8)
[2019-01-31 06:03] LABS: CHLORIDE 124 mmol/L (98-107)
[2019-01-31 06:10] LABS: ALANINE AMINOTRANSFERASE 70 U/L (12-78); ALBUMIN 2.6 g/dL (3.4-5.0); ALKALINE PHOSPHATASE 135 U/L (45-117); ANION GAP 5 mmol/L (5-15); BILIRUBIN,TOTAL 2.2 mg/dL (0.2-1.0); CALCIUM 8.4 mg/dL (8.5-10.1); CREATINE KINASE, TOTAL 318 U/L (39-308); CREATININE 1.19 mg/dL (0.7-1.3); TOTAL PROTEIN 5.4 g/dL (6.4-8.2)
[2019-01-31 06:38] VITALS: BP 167/84
[2019-01-31 07:00] LABS: MD YES
[2019-01-31 07:02] LABS: <PLATELET ESTIMATE> INCREASED; <PLT MORPHOLOGY> NORMAL PLT MORPH; <RBC MORPHOLOGY> NORMAL; BAND#(MANUAL) 1.18 x10^3/uL; BANDS%(MANUAL) 4 % (0-7); BASOS#(MANUAL) 0.29 x10^3/uL (0-0.1); BASOS% (MANUAL) 1 % (0-1); LYMPH#(MANUAL) 1.47 x10^3/uL (1-3.4); LYMPHS% (MANUAL) 5 % (22-44); MONOS#(MANUAL) 1.47 x10^3/uL (0.3-2.7); MONOS% (MANUAL) 5 % (2-9); SEG#(MANUAL) 24.99 x10^3/uL (1.8-6.8); SEGS% (MANUAL) 85 % (42-75)
[2019-01-31] MEDS ORDERED: PROPOFOL 10 MG/ML, 100ML IV ONE (08:00)
[2019-01-31] MEDS ORDERED: ROCURONIUM 10 MG/ML,10ML ONE (08:00)
[2019-01-31] MEDS ORDERED: ETOMIDATE 20 MG/10 ML ONE (08:00)
[2019-01-31] MEDS: ALBUTEROL SULFATE 2.5 MG/3 ML NPPB SCH (08:40)
[2019-01-31] MEDS: ASPIRIN 81 MG TABLET EC PO SCH (09:00)
[2019-01-31] MEDS: SODIUM CHLORIDE FLUSH 10ML SYR IVF SCH ×2 (09:00→20:12)
[2019-01-31] MEDS: PANTOPROZOLE 40MG TABLET PO SCH (09:00)
[2019-01-31] MEDS ORDERED: FENTANYL PF 100 MCG/2ML ONE (10:33)
[2019-01-31] MEDS: ALBUTEROL/IPRATROPIUM 2.5MG/0.5MG, 3 ML INLINE SCH ×4 (10:50→23:00)
[2019-01-31] MEDS ORDERED: LACTULOSE 20 GM/30 ML UDC NG PRN (11:00)
[2019-01-31] MEDS ORDERED: PHARMACY MAY ADJ FOR RENAL FX MC SCH (11:00)
[2019-01-31] MEDS ORDERED: BISACODYL 10 MG SUPP PR PRN (11:00)
[2019-01-31] MEDS ORDERED: FENTANYL PF 100 MCG/2ML IVPush PRN (11:00)
[2019-01-31] MEDS ORDERED: SENNOSIDES 8.8 MG/5 ML ORAL SOL NG PRN (11:00)
[2019-01-31] MEDS ORDERED: SENNA/DOCUSATE TABLET NG PRN (11:00)
[2019-01-31] MEDS ORDERED: LIDOCAINE-MPF 1%, 2ML ENDO PRN (11:00)
[2019-01-31] MEDS: METRONIDAZOLE PMX 500MG/100ML 100 ML IV SCH ×3 (12:00→23:15)
[2019-01-31] MEDS ORDERED: DIGOXIN 0.25 MG/ML, 2ML IVPush ONE (12:00)
[2019-01-31] MEDS: LINEZOLID PMX 600MG/300ML 300 ML IV SCH (12:00)
[2019-01-31] MEDS: SODIUM CHLORIDE 0.9% 1,000 ML IV SCH (12:02)
[2019-01-31] MEDS: ENOXAPARIN 100 MG/ML SQ SCH (13:50)
[2019-01-31] MEDS: FAMOTIDINE 20 MG/2 ML IV SCH ×2 (13:50→23:15)
[2019-01-31] MEDS ORDERED: LACTATED RINGERS 500 ML IVBOLUS PRN (14:00)
[2019-01-31] MEDS ORDERED: LACTATED RINGERS 1,000 ML IV SCH (14:00)
[2019-01-31] MEDS ORDERED: AMIODARONE 150 MG in DEXTROSE 5% 100 ML IV ONE (14:59)
[2019-01-31] MEDS ORDERED: AMIODARONE 900 MG in DEXTROSE 5% 482 ML IV SCH (14:59)
[2019-01-31] MEDS ORDERED: FILTER 0.22 MICRON FOR AMIODARONE IV PRN (15:30)
[2019-01-31] MEDS ORDERED: HEPARIN 5,000 UNITS/ML, 1ML IV ONE (15:30)
[2019-01-31] MEDS: NOREPINEPHRINE 4 MG in SODIUM CHLORIDE 0.9% 246 ML IV PRN (15:34)
[2019-01-31] MEDS: LACTATED RINGERS 1,000 ML IV SCH ×2 (15:35→17:05)
[2019-01-31] MEDS: HEPARIN 25,000 UNITS/500ML PMX 500 ML IV PRN (16:58)
[2019-01-31] MEDS: PROPOFOL 100 ML IV PRN (17:05)
[2019-01-31] MEDS ORDERED: VASOPRESSIN 100 UNIT in SODIUM CHLORIDE 0.9% 495 ML IV PRN (17:30)
[2019-01-31 18:24] LABS: ANION GAP 9 mmol/L (5-15); CALCIUM 8.6 mg/dL (8.5-10.1); CHLORIDE 122 mmol/L (98-107); CREATININE 1.31 mg/dL (0.7-1.3)
[2019-01-31] MEDS: ATORVASTATIN 20 MG TABLET PO SCH (20:12)
[2019-01-31 20:30] LABS: MICROSCOPIC INDICATED
[2019-01-31 20:44] LABS: CULTURE INDICATED? YES
[2019-02-01] MEDS: LINEZOLID PMX 600MG/300ML 300 ML IV SCH ×2 (00:24→12:58)
[2019-02-01] MEDS: PROPOFOL 100 ML IV PRN ×5 (00:24→22:48)
[2019-02-01] MEDS: ALBUTEROL/IPRATROPIUM 2.5MG/0.5MG, 3 ML INLINE SCH ×6 (02:20→22:16)
[2019-02-01] MEDS: NOREPINEPHRINE 4 MG in SODIUM CHLORIDE 0.9% 246 ML IV PRN (03:59)
[2019-02-01 04:00] VITALS: BP 123/64
[2019-02-01] MEDS: METRONIDAZOLE PMX 500MG/100ML 100 ML IV SCH (05:23)
[2019-02-01 05:29] LABS: MEAN CORPUSCULAR HEMOGLOBIN 27.8 pg (27.5-34.5); MEAN CORPUSCULAR HGB CONC 32.8 g/dL (33.2-36.2); MEAN CORPUSCULAR VOLUME 84.9 fL (81-97); MEAN PLATELET VOLUME 8.2 fL (7.4-10.4); PLATELET COUNT 724 x10^3/uL (130-400); RED BLOOD COUNT 5.07 x10^6/uL (4.38-5.82); RED CELL DISTRIBUTION WIDTH 15.4 % (9.4-14.8)
[2019-02-01 05:34] LABS: ALBUMIN 1.9 g/dL (3.4-5.0); ANION GAP 7 mmol/L (5-15); CALCIUM 6.9 mg/dL (8.5-10.1); CHLORIDE 111 mmol/L (98-107)
[2019-02-01 05:39] LABS: ALANINE AMINOTRANSFERASE 45 U/L (12-78); ALKALINE PHOSPHATASE 120 U/L (45-117); BILIRUBIN,TOTAL 1.8 mg/dL (0.2-1.0); CREATININE 1.78 mg/dL (0.7-1.3); TOTAL PROTEIN 4.5 g/dL (6.4-8.2)
[2019-02-01 06:00] LABS: MD YES
[2019-02-01 06:02] LABS: <PLATELET ESTIMATE> INCREASED; <PLT MORPHOLOGY> NORMAL PLT MORPH; <RBC MORPHOLOGY> NORMAL; BAND#(MANUAL) 1.46 x10^3/uL; BANDS%(MANUAL) 4 % (0-7); BASOS#(MANUAL) 0.36 x10^3/uL (0-0.1); BASOS% (MANUAL) 1 % (0-1); EOS#(MANUAL) 0.36 x10^3/uL (0.0-0.4); EOS% (MANUAL) 1 % (1-7); LYMPH#(MANUAL) 0.73 x10^3/uL (1-3.4); LYMPHS% (MANUAL) 2 % (22-44); MONOS#(MANUAL) 3.64 x10^3/uL (0.3-2.7); MONOS% (MANUAL) 10 % (2-9); SEG#(MANUAL) 29.85 x10^3/uL (1.8-6.8); SEGS% (MANUAL) 82 % (42-75)
[2019-02-01] MEDS: HEPARIN 5,000 UNITS/ML, 1ML IV PRN (07:07)
[2019-02-01] MEDS: SODIUM CHLORIDE 0.9% 1,000 ML IV SCH (07:09)
[2019-02-01] MEDS: PANTOPROZOLE 40MG TABLET PO SCH (08:57)
[2019-02-01] MEDS: ASPIRIN 81 MG TABLET EC PO SCH (08:58)
[2019-02-01] MEDS ORDERED: PANTOPRAZOLE 40 MG IV ONE (09:03)
[2019-02-01] MEDS ORDERED: ASPIRIN 81 MG TABLET CHEW ONE (09:03)
[2019-02-01] MEDS: SODIUM CHLORIDE FLUSH 10ML SYR IVF SCH ×2 (09:14→22:23)
[2019-02-01] MEDS: PANTOPRAZOLE 40 MG IV IVPush SCH (09:14)
[2019-02-01] MEDS: ASPIRIN 81 MG TABLET CHEW PO SCH (09:14)
[2019-02-01] MEDS ORDERED: AMIODARONE 200 MG TABLET PO SCH (09:21)
[2019-02-01] MEDS ORDERED: LEVOFLOXACIN/PMX 750MG/150ML 150 ML IV SCH (09:30)
--- NOTE | 2019-02-01 11:21 | NUR ---
TF GOAL: w/ propofol: PROMOTE @ 70ML/HR off propofol: PROMOTE @ 80ML/HR
[2019-02-01] MEDS: INSULIN LISPRO 100 UNITS/ML, PEN MEDIUM DOSE SS SQ-INSULIN SCH ×3 (11:28→22:23)
[2019-02-01 15:04] LABS: ANION GAP 7 mmol/L (5-15); CHLORIDE 116 mmol/L (98-107); CREATININE 2.29 mg/dL (0.7-1.3)
[2019-02-01] MEDS ORDERED: AMIODARONE 900 MG in DEXTROSE 5% 482 ML IV PRN (18:30)
[2019-02-01] MEDS ORDERED: FILTER 0.22 MICRON IV PRN (18:30)
[2019-02-01] MEDS: ATORVASTATIN 20 MG TABLET PO SCH (18:39)
[2019-02-02] MEDS: HEPARIN 5,000 UNITS/ML, 1ML IV PRN ×2 (00:23→11:12)
[2019-02-02] MEDS: NOREPINEPHRINE 4 MG in SODIUM CHLORIDE 0.9% 246 ML IV PRN (00:25)
[2019-02-02] MEDS: LINEZOLID PMX 600MG/300ML 300 ML IV SCH ×2 (00:58→12:32)
[2019-02-02] MEDS: ALBUTEROL/IPRATROPIUM 2.5MG/0.5MG, 3 ML INLINE SCH ×4 (02:31→13:15)
[2019-02-02 04:00] VITALS: BP 105/54
[2019-02-02] MEDS: PROPOFOL 100 ML IV PRN (04:44)
[2019-02-02] MEDS: INSULIN LISPRO 100 UNITS/ML, PEN MEDIUM DOSE SS SQ-INSULIN SCH ×4 (04:49→20:42)
[2019-02-02 06:14] LABS: MEAN CORPUSCULAR HGB CONC 33.3 g/dL (33.2-36.2); MEAN CORPUSCULAR VOLUME 84.2 fL (81-97); PLATELET COUNT 768 x10^3/uL (130-400); RED BLOOD COUNT 4.99 x10^6/uL (4.38-5.82); RED CELL DISTRIBUTION WIDTH 15.9 % (9.4-14.8)
[2019-02-02 06:24] LABS: ANION GAP 8 mmol/L (5-15); CHLORIDE 113 mmol/L (98-107); CREATININE 1.86 mg/dL (0.7-1.3)
[2019-02-02 06:38] LABS: MD YES
[2019-02-02 06:42] LABS: <PLATELET ESTIMATE> ADEQUATE; BAND#(MANUAL) 0.26 x10^3/uL; BANDS%(MANUAL) 1 % (0-7); EOS#(MANUAL) 0.79 x10^3/uL (0.0-0.4); EOS% (MANUAL) 3 % (1-7); LYMPHS% (MANUAL) 8 % (22-44); MONOS#(MANUAL) 1.31 x10^3/uL (0.3-2.7); MONOS% (MANUAL) 5 % (2-9); SEG#(MANUAL) 21.75 x10^3/uL (1.8-6.8); SEGS% (MANUAL) 83 % (42-75)
[2019-02-02 06:43] LABS: LARGE PLATELETS 1+
[2019-02-02 06:44] LABS: GIANT PLATELETS 1+; POLYCHROMASIA 1+
[2019-02-02] MEDS ORDERED: POTASSIUM PHOSPHATE 44 MEQ in SODIUM CHLORIDE 0.9% 500 ML IV ONE (10:00)
[2019-02-02] MEDS ORDERED: FUROSEMIDE 20 MG/2 ML IV ONE (10:00)
[2019-02-02] MEDS: ASPIRIN 81 MG TABLET CHEW PO SCH (10:05)
[2019-02-02] MEDS: PANTOPRAZOLE 40 MG IV IVPush SCH (10:05)
[2019-02-02] MEDS: SODIUM CHLORIDE FLUSH 10ML SYR IVF SCH ×2 (10:06→20:42)
[2019-02-02] MEDS: HEPARIN 25,000 UNITS/500ML PMX 500 ML IV PRN (12:05)
[2019-02-02] MEDS ORDERED: ALBUTEROL/IPRATROPIUM 2.5MG/0.5MG, 3 ML NPPB PRN (17:00)
[2019-02-02] MEDS: ATORVASTATIN 20 MG TABLET PO SCH (18:00)
[2019-02-02] MEDS: ALBUTEROL/IPRATROPIUM 2.5MG/0.5MG, 3 ML NPPB SCH (19:24)
[2019-02-02] MEDS ORDERED: DEXTROSE 5% 1,000 ML IV SCH ×2 (21:00→21:13)
[2019-02-03] MEDS: LINEZOLID PMX 600MG/300ML 300 ML IV SCH ×2 (00:58→14:37)
[2019-02-03] MEDS: INSULIN LISPRO 100 UNITS/ML, PEN MEDIUM DOSE SS SQ-INSULIN SCH ×4 (03:00→21:00)
[2019-02-03 03:50] LABS: MEAN CORPUSCULAR HGB CONC 33.3 g/dL (33.2-36.2); MEAN CORPUSCULAR VOLUME 84.2 fL (81-97); MEAN PLATELET VOLUME 7.9 fL (7.4-10.4); PLATELET COUNT 895 x10^3/uL (130-400); RED BLOOD COUNT 5.23 x10^6/uL (4.38-5.82); RED CELL DISTRIBUTION WIDTH 15.4 % (9.4-14.8)
[2019-02-03 03:58] LABS: ANION GAP 6 mmol/L (5-15); CHLORIDE 116 mmol/L (98-107)
[2019-02-03 04:32] LABS: MD YES
[2019-02-03 04:35] LABS: BASOS#(MANUAL) 0.21 x10^3/uL (0-0.1); BASOS% (MANUAL) 1 % (0-1); EOS#(MANUAL) 1.26 x10^3/uL (0.0-0.4); EOS% (MANUAL) 6 % (1-7); LYMPH#(MANUAL) 2.31 x10^3/uL (1-3.4); LYMPHS% (MANUAL) 11 % (22-44); MONOS#(MANUAL) 1.89 x10^3/uL (0.3-2.7); MONOS% (MANUAL) 9 % (2-9); SEG#(MANUAL) 15.33 x10^3/uL (1.8-6.8); SEGS% (MANUAL) 73 % (42-75)
[2019-02-03 04:36] LABS: ANISOCYTOSIS 1+; POLYCHROMASIA 1+
[2019-02-03 04:37] LABS: <PLATELET ESTIMATE> INCREASED; LARGE PLATELETS 1+
[2019-02-03 04:42] VITALS: BP 151/68
[2019-02-03] MEDS: HEPARIN 25,000 UNITS/500ML PMX 500 ML IV PRN ×2 (05:01→21:50)
[2019-02-03] MEDS: ALBUTEROL/IPRATROPIUM 2.5MG/0.5MG, 3 ML NPPB SCH ×4 (07:00→20:00)
[2019-02-03] MEDS: PANTOPRAZOLE 40 MG IV IVPush SCH (08:09)
[2019-02-03] MEDS: SODIUM CHLORIDE FLUSH 10ML SYR IVF SCH ×2 (08:10→21:36)
--- NOTE | 2019-02-03 09:39 | NUR ---
REC: NPO with NGT except limited ice chips with supervision of RN or LIBRARY MEDIA ASSISTANT; orange sheet with swallow precautions posted in room. Addendum: 02/03/19 at 0939 by Deanna BEACH Amended: Links added.
[2019-02-03] MEDS: FUROSEMIDE 20 MG/2 ML IV SCH (10:18)
[2019-02-03] MEDS ORDERED: FENTANYL PF 100 MCG/2ML IVPush ONE (13:00)
[2019-02-03] MEDS: ATORVASTATIN 20 MG TABLET PO SCH (17:16)
[2019-02-03] MEDS: ASPIRIN 81 MG TABLET CHEW PO SCH (21:23)
[2019-02-04] MEDS: LINEZOLID PMX 600MG/300ML 300 ML IV SCH ×2 (01:18→12:55)
[2019-02-04] MEDS: INSULIN LISPRO 100 UNITS/ML, PEN MEDIUM DOSE SS SQ-INSULIN SCH ×4 (04:08→20:46)
[2019-02-04 04:27] LABS: MEAN CORPUSCULAR HEMOGLOBIN 27.9 pg (27.5-34.5); MEAN CORPUSCULAR HGB CONC 33.4 g/dL (33.2-36.2); MEAN CORPUSCULAR VOLUME 83.7 fL (81-97); MEAN PLATELET VOLUME 7.5 fL (7.4-10.4); PLATELET COUNT 856 x10^3/uL (130-400); RED BLOOD COUNT 5.48 x10^6/uL (4.38-5.82); RED CELL DISTRIBUTION WIDTH 15.8 % (9.4-14.8)
[2019-02-04 04:30] LABS: ANION GAP 7 mmol/L (5-15); CALCIUM 8.1 mg/dL (8.5-10.1); CHLORIDE 112 mmol/L (98-107); CREATININE 1.09 mg/dL (0.7-1.3)
[2019-02-04 05:00] VITALS: BP 167/78
[2019-02-04] MEDS: HEPARIN 5,000 UNITS/ML, 1ML IV PRN (05:37)
[2019-02-04 05:38] LABS: MD YES
[2019-02-04 05:40] LABS: <PLATELET ESTIMATE> INCREASED; ANISOCYTOSIS 1+; BANDS%(MANUAL) 2 % (0-7); EOS#(MANUAL) 1.21 x10^3/uL (0.0-0.4); EOS% (MANUAL) 6 % (1-7); LARGE PLATELETS 1+; LYMPH#(MANUAL) 2.83 x10^3/uL (1-3.4); LYMPHS% (MANUAL) 14 % (22-44); MONOS#(MANUAL) 0.61 x10^3/uL (0.3-2.7); MONOS% (MANUAL) 3 % (2-9); NRBC % (MANUAL) 1 % (0-1); PMNS WITH VACUOLES 1+; POLYCHROMASIA 1+; SEG#(MANUAL) 15.15 x10^3/uL (1.8-6.8); SEGS% (MANUAL) 75 % (42-75)
[2019-02-04] MEDS: ALBUTEROL/IPRATROPIUM 2.5MG/0.5MG, 3 ML NPPB SCH ×4 (07:15→19:11)
[2019-02-04] MEDS: SODIUM CHLORIDE FLUSH 10ML SYR IVF SCH ×2 (08:18→20:41)
[2019-02-04] MEDS: ASPIRIN 81 MG TABLET CHEW PO SCH (08:18)
[2019-02-04] MEDS: FUROSEMIDE 20 MG/2 ML IV SCH (08:18)
[2019-02-04] MEDS: PANTOPRAZOLE 40 MG IV IVPush SCH (08:18)
[2019-02-04] MEDS ORDERED: FUROSEMIDE 20 MG/2 ML IV ONE (09:30)
[2019-02-04 09:48] LABS: INTERNATIONAL NORMALIZED RATIO 1.39 (0.93-1.1); PROTHROMBIN TIME 14.4 Seconds (9.6-11.5)
[2019-02-04] MEDS: POTASSIUM CHLORIDE 10% 40 MEQ/30 ML UDC PO SCH ×2 (12:00→20:40)
[2019-02-04] MEDS: GUAIFENESIN 100 MG/5 ML, 5ML UDC NG SCH ×2 (12:00→18:01)
[2019-02-04] MEDS: HEPARIN 25,000 UNITS/500ML PMX 500 ML IV PRN (12:54)
[2019-02-04] MEDS ORDERED: MAGNESIUM SULFATE PMX 2GM/50ML 50 ML IV ONE (18:00)
[2019-02-04] MEDS ORDERED: WARFARIN 5 MG TABLET PO-COUM ONE (18:00)
[2019-02-04] MEDS: ATORVASTATIN 20 MG TABLET PO SCH (18:01)
[2019-02-04] MEDS: FUROSEMIDE 40 MG/4 ML IV SCH (20:40)
[2019-02-04 22:40] LABS: CLOSTRIDIUM DIFFICILE ANTIGEN NEGATIVE; CLOSTRIDIUM DIFFICILE TOXIN NEGATIVE (Negative)
[2019-02-05] MEDS: GUAIFENESIN 100 MG/5 ML, 5ML UDC NG SCH ×3 (00:31→17:39)
[2019-02-05] MEDS: LINEZOLID PMX 600MG/300ML 300 ML IV SCH (00:31)
[2019-02-05] MEDS: INSULIN LISPRO 100 UNITS/ML, PEN MEDIUM DOSE SS SQ-INSULIN SCH ×4 (03:00→21:37)
[2019-02-05] MEDS: HEPARIN 25,000 UNITS/500ML PMX 500 ML IV PRN ×2 (03:18→17:12)
[2019-02-05 05:00] VITALS: BP 152/74
[2019-02-05 05:10] LABS: MEAN CORPUSCULAR HEMOGLOBIN 28.1 pg (27.5-34.5); MEAN CORPUSCULAR HGB CONC 33.5 g/dL (33.2-36.2); MEAN CORPUSCULAR VOLUME 83.9 fL (81-97); MEAN PLATELET VOLUME 7.4 fL (7.4-10.4); PLATELET COUNT 795 x10^3/uL (130-400); RED BLOOD COUNT 5.44 x10^6/uL (4.38-5.82)
[2019-02-05 05:12] LABS: INTERNATIONAL NORMALIZED RATIO 1.3 (0.93-1.1); PROTHROMBIN TIME 13.5 Seconds (9.6-11.5)
[2019-02-05 05:16] LABS: ANION GAP 6 mmol/L (5-15); CALCIUM 8.2 mg/dL (8.5-10.1); CHLORIDE 109 mmol/L (98-107)
[2019-02-05 05:21] LABS: CREATININE 1.11 mg/dL (0.7-1.3)
[2019-02-05 06:12] LABS: MD YES
[2019-02-05 06:14] LABS: <PLATELET ESTIMATE> INCREASED; <PLT MORPHOLOGY> NORMAL PLT MORPH; ANISOCYTOSIS 1+; BAND#(MANUAL) 0.39 x10^3/uL; BANDS%(MANUAL) 2 % (0-7); EOS#(MANUAL) 0.78 x10^3/uL (0.0-0.4); EOS% (MANUAL) 4 % (1-7); LYMPH#(MANUAL) 1.95 x10^3/uL (1-3.4); LYMPHS% (MANUAL) 10 % (22-44); MONOS#(MANUAL) 0.39 x10^3/uL (0.3-2.7); MONOS% (MANUAL) 2 % (2-9); SEG#(MANUAL) 15.99 x10^3/uL (1.8-6.8); SEGS% (MANUAL) 82 % (42-75)
[2019-02-05] MEDS: ALBUTEROL/IPRATROPIUM 2.5MG/0.5MG, 3 ML NPPB SCH ×2 (07:32→10:32)
[2019-02-05] MEDS: PANTOPRAZOLE 40 MG IV IVPush SCH (09:00)
[2019-02-05] MEDS ORDERED: POTASSIUM CHLORIDE 10% 40 MEQ/30 ML UDC PO ONE (09:30)
[2019-02-05] MEDS ORDERED: HEPARIN wt. based STROKE protocol MC SCH (09:30)
[2019-02-05] MEDS ORDERED: MAGNESIUM SULFATE PMX 2GM/50ML 50 ML IV ONE (09:30)
[2019-02-05] MEDS: FUROSEMIDE 40 MG/4 ML IV SCH ×2 (09:50→21:37)
[2019-02-05] MEDS: DOXYCYCLINE 100 MG in DEXTROSE 5% 250 ML IV SCH ×2 (09:54→21:37)
[2019-02-05] MEDS: ASPIRIN 81 MG TABLET CHEW PO SCH (09:59)
[2019-02-05] MEDS: SODIUM CHLORIDE FLUSH 10ML SYR IVF SCH ×2 (09:59→21:43)
[2019-02-05] MEDS: LOSARTAN 50MG TABLET PO SCH ×2 (10:16→21:37)
[2019-02-05] MEDS ORDERED: LOSA100T14 PO (12:07)
[2019-02-05] MEDS ORDERED: AMLO-150 PO (12:07)
[2019-02-05] MEDS: POTASSIUM CHLORIDE 10% 40 MEQ/30 ML UDC PO SCH ×2 (12:55→21:36)
--- NOTE | 2019-02-05 13:13 | NUR ---
REC NTL/DAMION; swallow precaution sheet posted at bedside Addendum: 02/05/19 at [address] Amended: Links added.
[2019-02-05 14:24] LABS: CHOL/HDL RATIO 3.3; LDL/HDL RATIO 1.4 (0.5-3.0)
[2019-02-05] MEDS: ATORVASTATIN 20 MG TABLET PO SCH (17:39)
[2019-02-06] MEDS: GUAIFENESIN 100 MG/5 ML, 5ML UDC NG SCH ×3 (02:27→15:40)
[2019-02-06] MEDS: INSULIN LISPRO 100 UNITS/ML, PEN MEDIUM DOSE SS SQ-INSULIN SCH (03:00)
[2019-02-06 04:56] LABS: MEAN CORPUSCULAR HEMOGLOBIN 27.9 pg (27.5-34.5); MEAN CORPUSCULAR VOLUME 84.6 fL (81-97); MEAN PLATELET VOLUME 7.3 fL (7.4-10.4); PLATELET COUNT 815 x10^3/uL (130-400); RED BLOOD COUNT 5.64 x10^6/uL (4.38-5.82); RED CELL DISTRIBUTION WIDTH 15.9 % (9.4-14.8)
[2019-02-06 05:02] LABS: INTERNATIONAL NORMALIZED RATIO 1.23 (0.93-1.1); PROTHROMBIN TIME 12.8 Seconds (9.6-11.5)
[2019-02-06 05:06] LABS: ALBUMIN 2.2 g/dL (3.4-5.0); ANION GAP 4 mmol/L (5-15); CALCIUM 8.6 mg/dL (8.5-10.1); CHLORIDE 106 mmol/L (98-107)
[2019-02-06 05:08] LABS: HEMOGLOBIN A1C 5.6 % (4.2-6.3)
[2019-02-06 05:09] LABS: ALANINE AMINOTRANSFERASE 144 U/L (12-78); ALKALINE PHOSPHATASE 238 U/L (45-117); BILIRUBIN,TOTAL 0.6 mg/dL (0.2-1.0); CREATININE 0.97 mg/dL (0.7-1.3); TOTAL PROTEIN 5.7 g/dL (6.4-8.2)
[2019-02-06 05:32] LABS: BASOPHILS # (AUTO) 0.09 x10^3/uL (0-0.1); BASOPHILS % (AUTO) 1 % (0-1); EOSINOPHILS # (AUTO) 0.44 x10^3/uL (0-0.4); EOSINOPHILS % (AUTO) 2 % (1-7); LYMPHOCYTES % (AUTO) 19 % (22-44); MD SCAN; MONOCYTES # (AUTO) 1.18 x10^3/uL (0.2-0.8); MONOCYTES % (AUTO) 6 % (2-9); NEUTROPHILS # (AUTO) 13.84 x10^3/uL (1.8-6.8); NEUTROPHILS % (AUTO) 72 % (42-75)
[2019-02-06] MEDS: ALBUTEROL SULFATE 2.5 MG/3 ML NPPB SCH ×4 (07:00→20:00)
[2019-02-06] MEDS: DOXYCYCLINE 100 MG in DEXTROSE 5% 250 ML IV SCH ×2 (08:38→21:07)
[2019-02-06] MEDS: ASPIRIN 81 MG TABLET CHEW PO SCH (08:46)
[2019-02-06] MEDS: LOSARTAN 50MG TABLET PO SCH ×2 (08:46→21:06)
[2019-02-06] MEDS: POTASSIUM CHLORIDE 10% 40 MEQ/30 ML UDC PO SCH ×2 (08:55→21:06)
[2019-02-06] MEDS: SODIUM CHLORIDE FLUSH 10ML SYR IVF SCH ×2 (09:00→21:08)
[2019-02-06] MEDS: FUROSEMIDE 40 MG/4 ML IV SCH ×2 (09:05→21:06)
[2019-02-06] MEDS: HEPARIN 25,000 UNITS/500ML PMX 500 ML IV PRN (09:30)
[2019-02-06] MEDS: ATORVASTATIN 20 MG TABLET PO SCH (17:57)
[2019-02-07] MEDS: GUAIFENESIN 100 MG/5 ML, 5ML UDC NG SCH ×3 (00:11→15:34)
[2019-02-07] MEDS: HEPARIN 25,000 UNITS/500ML PMX 500 ML IV PRN ×2 (00:21→15:33)
[2019-02-07 05:02] LABS: INTERNATIONAL NORMALIZED RATIO 1.15 (0.93-1.1)
[2019-02-07] MEDS: ALBUTEROL SULFATE 2.5 MG/3 ML NPPB SCH ×4 (07:00→20:00)
[2019-02-07] MEDS: ALBUTEROL/IPRATROPIUM 2.5MG/0.5MG, 3 ML NPPB PRN (07:01)
[2019-02-07] MEDS: SODIUM CHLORIDE FLUSH 10ML SYR IVF SCH ×2 (09:00→21:19)
[2019-02-07] MEDS: ASPIRIN 81 MG TABLET CHEW PO SCH (09:20)
[2019-02-07] MEDS: LOSARTAN 50MG TABLET PO SCH ×2 (09:20→21:19)
[2019-02-07] MEDS: FUROSEMIDE 40 MG/4 ML IV SCH (09:20)
[2019-02-07] MEDS: DOXYCYCLINE 100 MG in DEXTROSE 5% 250 ML IV SCH ×2 (09:32→21:19)
[2019-02-07] MEDS: ATORVASTATIN 20 MG TABLET PO SCH (17:04)
[2019-02-08] MEDS: GUAIFENESIN 100 MG/5 ML, 5ML UDC NG SCH ×3 (01:30→18:06)
[2019-02-08] MEDS ORDERED: GUAIFENESIN 100 MG/5 ML, 10ML UDC ONE (01:47)
[2019-02-08] MEDS: HEPARIN 25,000 UNITS/500ML PMX 500 ML IV PRN ×2 (04:20→22:40)
[2019-02-08 04:56] LABS: MEAN CORPUSCULAR HEMOGLOBIN 27.3 pg (27.5-34.5); MEAN CORPUSCULAR HGB CONC 32.6 g/dL (33.2-36.2); MEAN CORPUSCULAR VOLUME 83.8 fL (81-97); MEAN PLATELET VOLUME 7.8 fL (7.4-10.4); PLATELET COUNT 810 x10^3/uL (130-400); RED CELL DISTRIBUTION WIDTH 15.6 % (9.4-14.8)
[2019-02-08 04:59] LABS: INTERNATIONAL NORMALIZED RATIO 1.13 (0.93-1.1); PROTHROMBIN TIME 11.8 Seconds (9.6-11.5)
[2019-02-08 05:04] LABS: ANION GAP 7 mmol/L (5-15); CALCIUM 8.5 mg/dL (8.5-10.1); CHLORIDE 103 mmol/L (98-107); CREATININE 0.95 mg/dL (0.7-1.3)
[2019-02-08 05:40] LABS: MD YES
[2019-02-08 05:42] LABS: EOS#(MANUAL) 0.57 x10^3/uL (0.0-0.4); EOS% (MANUAL) 2 % (1-7); LYMPH#(MANUAL) 4.85 x10^3/uL (1-3.4); LYMPHS% (MANUAL) 17 % (22-44); MONOS#(MANUAL) 1.71 x10^3/uL (0.3-2.7); MONOS% (MANUAL) 6 % (2-9); PMNS WITH VACUOLES 1+; SEG#(MANUAL) 21.38 x10^3/uL (1.8-6.8); SEGS% (MANUAL) 75 % (42-75)
[2019-02-08 05:43] LABS: <PLATELET ESTIMATE> INCREASED; ANISOCYTOSIS 1+
[2019-02-08 05:44] LABS: <PLT MORPHOLOGY> NORMAL PLT MORPH
[2019-02-08] MEDS: ALBUTEROL SULFATE 2.5 MG/3 ML NPPB SCH ×2 (07:20→19:56)
[2019-02-08] MEDS: LOSARTAN 50MG TABLET PO SCH ×2 (09:05→20:49)
[2019-02-08] MEDS: ASPIRIN 81 MG TABLET CHEW PO SCH (09:05)
[2019-02-08] MEDS: MEROPENEM 1 GM in SODIUM CHLORIDE 0.9% 100 ML IV SCH ×3 (09:05→23:35)
[2019-02-08] MEDS: SODIUM CHLORIDE FLUSH 10ML SYR IVF SCH ×2 (09:05→20:48)
[2019-02-08] MEDS: FUROSEMIDE 40 MG/4 ML IV SCH (09:05)
[2019-02-08 12:40] VITALS: BP 112/63
[2019-02-08] MEDS: ATORVASTATIN 20 MG TABLET PO SCH (18:06)
[2019-02-08 19:43] VITALS: BP 123/76
[2019-02-09 01:10] VITALS: BP 112/75
[2019-02-09] MEDS: GUAIFENESIN 100 MG/5 ML, 5ML UDC NG SCH ×3 (01:25→16:02)
[2019-02-09 04:47] LABS: MEAN CORPUSCULAR HEMOGLOBIN 27.1 pg (27.5-34.5); MEAN CORPUSCULAR HGB CONC 32.6 g/dL (33.2-36.2); MEAN CORPUSCULAR VOLUME 83.2 fL (81-97); PLATELET COUNT 883 x10^3/uL (130-400); RED BLOOD COUNT 5.07 x10^6/uL (4.38-5.82); RED CELL DISTRIBUTION WIDTH 15.8 % (9.4-14.8)
[2019-02-09 04:49] LABS: INTERNATIONAL NORMALIZED RATIO 1.18 (0.93-1.1); PROTHROMBIN TIME 12.3 Seconds (9.6-11.5)
[2019-02-09 04:56] LABS: ANION GAP 5 mmol/L (5-15); CALCIUM 8.4 mg/dL (8.5-10.1); CHLORIDE 102 mmol/L (98-107)
[2019-02-09 04:59] LABS: CREATININE 1.09 mg/dL (0.7-1.3)
[2019-02-09 05:36] LABS: MD YES
[2019-02-09 05:38] LABS: <PLATELET ESTIMATE> INCREASED; <PLT MORPHOLOGY> NORMAL PLT MORPH; ANISOCYTOSIS 1+; BAND#(MANUAL) 0.34 x10^3/uL; BANDS%(MANUAL) 1 % (0-7); BASOS#(MANUAL) 0.34 x10^3/uL (0-0.1); BASOS% (MANUAL) 1 % (0-1); EOS#(MANUAL) 0.34 x10^3/uL (0.0-0.4); EOS% (MANUAL) 1 % (1-7); LYMPH#(MANUAL) 6.19 x10^3/uL (1-3.4); LYMPHS% (MANUAL) 18 % (22-44); MONOS#(MANUAL) 2.75 x10^3/uL (0.3-2.7); MONOS% (MANUAL) 8 % (2-9); SEG#(MANUAL) 24.42 x10^3/uL (1.8-6.8); SEGS% (MANUAL) 71 % (42-75)
[2019-02-09 08:12] VITALS: BP 122/63
[2019-02-09] MEDS: LOSARTAN 50MG TABLET PO SCH ×2 (08:14→21:00)
[2019-02-09] MEDS: MEROPENEM 1 GM in SODIUM CHLORIDE 0.9% 100 ML IV SCH ×2 (08:14→16:02)
[2019-02-09] MEDS: SODIUM CHLORIDE FLUSH 10ML SYR IVF SCH ×2 (08:14→21:15)
[2019-02-09] MEDS: ASPIRIN 81 MG TABLET CHEW PO SCH (08:14)
[2019-02-09] MEDS: ALBUTEROL SULFATE 2.5 MG/3 ML NPPB SCH (09:00)
[2019-02-09] MEDS: FUROSEMIDE 40 MG/4 ML IV SCH (10:56)
[2019-02-09 14:04] VITALS: BP 129/55
[2019-02-09] MEDS: HEPARIN 25,000 UNITS/500ML PMX 500 ML IV PRN (16:01)
[2019-02-09] MEDS: ATORVASTATIN 20 MG TABLET PO SCH (16:02)
[2019-02-09] MEDS ORDERED: ACETAMINOPHEN 650 MG/20.3 ML UDC PO PRN (16:30)
[2019-02-09] MEDS ORDERED: PHARMACOKINETIC MONITORING MC PRN (17:00)
[2019-02-09] MEDS: VANCOMYCIN 1,700 MG in SODIUM CHLORIDE 0.9% 250 ML IV SCH (17:07)
[2019-02-09 17:25] VITALS: BP 121/65
[2019-02-09] MEDS ORDERED: VANCOMYCIN PER PHARMACY MC PRN (17:30)
[2019-02-09] MEDS ORDERED: PHARMACOKINETIC CONSULTATION MC ONE (17:30)
[2019-02-09 17:54] LABS: MICROSCOPIC NOT IND
[2019-02-09 17:59] LABS: CULTURE INDICATED? NO
[2019-02-09 18:22] VITALS: BP 155/68
[2019-02-09] MEDS ORDERED: PROPOFOL 100 ML IV ONE (18:49)
[2019-02-09] MEDS ORDERED: NOREPINEPHRINE 1 MG/ML, 4ML ONE (18:59)
[2019-02-09 19:06] LABS: TROPONIN I 0.208 ng/mL (0.000-0.045)
[2019-02-09] MEDS ORDERED: NOREPINEPHRINE 4 MG in SODIUM CHLORIDE 0.9% 246 ML IV PRN (19:30)
[2019-02-09] MEDS ORDERED: SODIUM CHLORIDE 0.9% 1,000ML IVBOLUS ONE (19:30)
[2019-02-09] MEDS ORDERED: SUCCINYLCHOLINE 20 MG/ML, 10ML ONE (19:57)
[2019-02-09] MEDS ORDERED: ETOMIDATE 20 MG/10 ML ONE (19:57)
[2019-02-09] MEDS ORDERED: PANTOPRAZOLE 80 MG in SODIUM CHLORIDE 0.9% 50 ML IV ONE (21:00)
[2019-02-09] MEDS: VASOPRESSIN 100 UNIT in SODIUM CHLORIDE 0.9% 495 ML IV PRN (21:01)
[2019-02-09] MEDS: PROPOFOL 100 ML IV PRN ×2 (21:02→22:30)
[2019-02-09 21:04] LABS: MEAN CORPUSCULAR HEMOGLOBIN 28.2 pg (27.5-34.5); MEAN CORPUSCULAR HGB CONC 33.7 g/dL (33.2-36.2); MEAN CORPUSCULAR VOLUME 83.6 fL (81-97); MEAN PLATELET VOLUME 8.4 fL (7.4-10.4); PLATELET COUNT 853 x10^3/uL (130-400); RED BLOOD COUNT 4.96 x10^6/uL (4.38-5.82); RED CELL DISTRIBUTION WIDTH 15.8 % (9.4-14.8)
[2019-02-09] MEDS: PANTOPRAZOLE 80 MG in SODIUM CHLORIDE 0.9% 100 ML IV SCH (21:04)
[2019-02-09 21:14] LABS: INTERNATIONAL NORMALIZED RATIO 1.23 (0.93-1.1); PROTHROMBIN TIME 12.8 Seconds (9.6-11.5)
[2019-02-09 21:16] LABS: ALANINE AMINOTRANSFERASE 107 U/L (12-78); ANION GAP 12 mmol/L (5-15); CALCIUM 8.2 mg/dL (8.5-10.1); CHLORIDE 105 mmol/L (98-107); CREATININE 1.81 mg/dL (0.7-1.3)
[2019-02-09 21:18] LABS: ALKALINE PHOSPHATASE 314 U/L (45-117); BILIRUBIN,TOTAL 1.2 mg/dL (0.2-1.0); TOTAL PROTEIN 5.2 g/dL (6.4-8.2)
[2019-02-09 21:29] LABS: MD YES
[2019-02-09 21:36] LABS: ANISOCYTOSIS 1+; BAND#(MANUAL) 1.24 x10^3/uL; BANDS%(MANUAL) 3 % (0-7); EOS#(MANUAL) 0.41 x10^3/uL (0.0-0.4); EOS% (MANUAL) 1 % (1-7); LYMPH#(MANUAL) 6.18 x10^3/uL (1-3.4); LYMPHS% (MANUAL) 15 % (22-44); MONOS#(MANUAL) 2.47 x10^3/uL (0.3-2.7); MONOS% (MANUAL) 6 % (2-9); POLYCHROMASIA 1+; REACTIVE LYMPHS # (MANUAL) 0.82 x10^3/uL (0-0); REACTIVE LYMPHS % (MANUAL) 2 % (0-0); SEGS% (MANUAL) 73 % (42-75)
[2019-02-09 21:37] LABS: <PLATELET ESTIMATE> INCREASED; ECHINOCYTES 2+
[2019-02-09 21:38] LABS: LARGE PLATELETS 1+
[2019-02-09] MEDS: SODIUM CHLORIDE 0.9% 1,000 ML IV SCH (22:57)
[2019-02-10] MEDS ORDERED: NOREPINEPHRINE 1 MG/ML, 4ML ONE (00:11)
[2019-02-10] MEDS: MEROPENEM 1 GM in SODIUM CHLORIDE 0.9% 100 ML IV SCH ×3 (00:20→22:56)
[2019-02-10] MEDS ORDERED: SODIUM CHLORIDE 0.9% 1,000ML IVBOLUS ONE (00:30)
[2019-02-10] MEDS ORDERED: NOREPINEPHRINE 8 MG in SODIUM CHLORIDE 0.9% 242 ML IV PRN (00:30)
[2019-02-10] MEDS: GUAIFENESIN 100 MG/5 ML, 5ML UDC NG SCH ×3 (01:30→17:51)
[2019-02-10] MEDS: PROPOFOL 100 ML IV PRN ×4 (02:57→22:58)
[2019-02-10] MEDS: PHENYLEPHRINE 20 MG in SODIUM CHLORIDE 0.9% 248 ML IV PRN ×3 (03:01→11:36)
[2019-02-10 04:00] VITALS: BP 107/41
[2019-02-10] MEDS: PANTOPRAZOLE 80 MG in SODIUM CHLORIDE 0.9% 100 ML IV SCH ×2 (04:27→14:42)
[2019-02-10 04:47] LABS: MEAN CORPUSCULAR HEMOGLOBIN 27.9 pg (27.5-34.5); MEAN CORPUSCULAR HGB CONC 32.9 g/dL (33.2-36.2); MEAN CORPUSCULAR VOLUME 84.7 fL (81-97); MEAN PLATELET VOLUME 8.6 fL (7.4-10.4); PLATELET COUNT 939 x10^3/uL (130-400); RED CELL DISTRIBUTION WIDTH 15.9 % (9.4-14.8)
[2019-02-10 04:53] LABS: ALBUMIN 1.7 g/dL (3.4-5.0); ANION GAP 11 mmol/L (5-15); CALCIUM 7.5 mg/dL (8.5-10.1); CHLORIDE 110 mmol/L (98-107)
[2019-02-10 04:57] LABS: ALANINE AMINOTRANSFERASE 92 U/L (12-78); ALKALINE PHOSPHATASE 256 U/L (45-117); BILIRUBIN,TOTAL 1.8 mg/dL (0.2-1.0); CREATININE 2.33 mg/dL (0.7-1.3); TOTAL PROTEIN 4.7 g/dL (6.4-8.2)
[2019-02-10 05:38] LABS: MD YES
[2019-02-10 05:40] LABS: BAND#(MANUAL) 9.52 x10^3/uL; BANDS%(MANUAL) 16 % (0-7); EOS% (MANUAL) 1 % (1-7); LYMPH#(MANUAL) 5.95 x10^3/uL (1-3.4); LYMPHS% (MANUAL) 10 % (22-44); METAMYELOCYTES# (MANUAL) 1.19 x10^3/uL (0-0); METAMYELOCYTES% (MANUAL) 2 % (0-1); MONOS% (MANUAL) 1 % (2-9); SEG#(MANUAL) 41.65 x10^3/uL (1.8-6.8); SEGS% (MANUAL) 70 % (42-75)
[2019-02-10 05:41] LABS: <PLATELET ESTIMATE> INCREASED; ANISOCYTOSIS 1+; LARGE PLATELETS 1+; PMNS WITH VACUOLES 1+; POLYCHROMASIA 1+
[2019-02-10 05:42] LABS: GIANT PLATELETS 1+
[2019-02-10] MEDS ORDERED: GUAIFENESIN 100 MG/5 ML, 10ML UDC ONE (08:40)
[2019-02-10] MEDS: LOSARTAN 50MG TABLET PO SCH ×2 (08:41→19:35)
[2019-02-10] MEDS: ASPIRIN 81 MG TABLET CHEW PO SCH (08:42)
[2019-02-10] MEDS: SODIUM CHLORIDE FLUSH 10ML SYR IVF SCH ×2 (08:56→19:35)
[2019-02-10] MEDS: NOREPINEPHRINE 16 MG in SODIUM CHLORIDE 0.9% 234 ML IV PRN ×2 (09:37→17:50)
[2019-02-10] MEDS: SODIUM CHLORIDE 0.9% 1,000 ML IV SCH (11:37)
[2019-02-10] MEDS: ALBUMIN HUMAN 25% 100 ML IV SCH ×2 (14:44→23:44)
[2019-02-10 17:44] LABS: CREATININE 2.44 mg/dL (0.7-1.3); VANCOMYCIN,RANDOM 10.8 mcg/mL
[2019-02-10] MEDS: VANCOMYCIN 1,700 MG in SODIUM CHLORIDE 0.9% 250 ML IV SCH (19:21)
[2019-02-10] MEDS: ATORVASTATIN 20 MG TABLET PO SCH (19:35)
[2019-02-11] MEDS: PANTOPRAZOLE 80 MG in SODIUM CHLORIDE 0.9% 100 ML IV SCH ×3 (00:28→19:21)
[2019-02-11] MEDS: GUAIFENESIN 100 MG/5 ML, 5ML UDC NG SCH ×3 (02:03→17:32)
[2019-02-11] MEDS: SODIUM CHLORIDE 0.9% 1,000 ML IV SCH ×3 (02:03→21:45)
[2019-02-11] MEDS: PROPOFOL 100 ML IV PRN (03:23)
[2019-02-11 04:00] VITALS: BP 90/34
[2019-02-11 04:37] LABS: MEAN CORPUSCULAR HEMOGLOBIN 28.2 pg (27.5-34.5); MEAN CORPUSCULAR HGB CONC 33.6 g/dL (33.2-36.2); MEAN CORPUSCULAR VOLUME 84.1 fL (81-97); MEAN PLATELET VOLUME 8.5 fL (7.4-10.4); PLATELET COUNT 793 x10^3/uL (130-400); RED CELL DISTRIBUTION WIDTH 15.9 % (9.4-14.8)
[2019-02-11 05:10] LABS: MD YES
[2019-02-11 05:11] LABS: BAND#(MANUAL) 1.78 x10^3/uL; BANDS%(MANUAL) 5 % (0-7); EOS#(MANUAL) 0.36 x10^3/uL (0.0-0.4); EOS% (MANUAL) 1 % (1-7); LYMPH#(MANUAL) 2.14 x10^3/uL (1-3.4); LYMPHS% (MANUAL) 6 % (22-44); MONOS#(MANUAL) 0.71 x10^3/uL (0.3-2.7); MONOS% (MANUAL) 2 % (2-9)
[2019-02-11 05:12] LABS: ANISOCYTOSIS 1+; POLYCHROMASIA 1+; SMUDGE CELLS 1+
[2019-02-11 05:13] LABS: <PLATELET ESTIMATE> INCREASED; ECHINOCYTES 2+; LARGE PLATELETS 1+
[2019-02-11 05:14] LABS: MYELOCYTES# (MANUAL) 0.36 x10^3/uL (0-0); MYELOCYTES% (MANUAL) 1 % (0-0); SEG#(MANUAL) 30.26 x10^3/uL (1.8-6.8); SEGS% (MANUAL) 85 % (42-75)
[2019-02-11] MEDS ORDERED: MAGNESIUM SULFATE PMX 2GM/50ML 50 ML IV ONE (07:00)
[2019-02-11] MEDS: ALBUMIN HUMAN 25% 100 ML IV SCH ×3 (09:15→23:41)
[2019-02-11] MEDS: SODIUM CHLORIDE FLUSH 10ML SYR IVF SCH ×2 (09:15→21:00)
[2019-02-11] MEDS: LOSARTAN 50MG TABLET PO SCH ×2 (09:16→21:45)
[2019-02-11] MEDS: VASOPRESSIN 100 UNIT in SODIUM CHLORIDE 0.9% 495 ML IV PRN (09:49)
[2019-02-11] MEDS: NOREPINEPHRINE 16 MG in SODIUM CHLORIDE 0.9% 234 ML IV PRN (09:50)
[2019-02-11] MEDS: MEROPENEM 1 GM in SODIUM CHLORIDE 0.9% 100 ML IV SCH ×2 (11:13→23:40)
[2019-02-11] MEDS: ATORVASTATIN 20 MG TABLET PO SCH (17:41)
[2019-02-12] MEDS ORDERED: FENTANYL PF 100 MCG/2ML IVPush ONE (00:30)
[2019-02-12] MEDS: GUAIFENESIN 100 MG/5 ML, 5ML UDC NG SCH ×3 (00:41→17:49)
[2019-02-12 04:00] VITALS: BP 108/42
[2019-02-12 04:52] LABS: MEAN CORPUSCULAR HEMOGLOBIN 27.9 pg (27.5-34.5); MEAN CORPUSCULAR HGB CONC 33.2 g/dL (33.2-36.2); MEAN CORPUSCULAR VOLUME 84.1 fL (81-97); MEAN PLATELET VOLUME 8.1 fL (7.4-10.4); PLATELET COUNT 878 x10^3/uL (130-400); RED BLOOD COUNT 3.36 x10^6/uL (4.38-5.82); RED CELL DISTRIBUTION WIDTH 16.6 % (9.4-14.8)
[2019-02-12 04:57] LABS: VANCOMYCIN,RANDOM 12.7 mcg/mL
[2019-02-12] MEDS: PANTOPRAZOLE 80 MG in SODIUM CHLORIDE 0.9% 100 ML IV SCH (05:28)
[2019-02-12 06:05] LABS: MD YES
[2019-02-12 06:06] LABS: BAND#(MANUAL) 0.25 x10^3/uL; BANDS%(MANUAL) 1 % (0-7); EOS% (MANUAL) 4 % (1-7); LYMPH#(MANUAL) 2.26 x10^3/uL (1-3.4); LYMPHS% (MANUAL) 9 % (22-44); MONOS% (MANUAL) 2 % (2-9); SEG#(MANUAL) 21.08 x10^3/uL (1.8-6.8); SEGS% (MANUAL) 84 % (42-75)
[2019-02-12 06:07] LABS: <PLATELET ESTIMATE> INCREASED; ANISOCYTOSIS 1+; ECHINOCYTES 2+; POLYCHROMASIA 1+
[2019-02-12 06:08] LABS: LARGE PLATELETS 1+
[2019-02-12] MEDS: ALBUTEROL/IPRATROPIUM 2.5MG/0.5MG, 3 ML NPPB PRN (07:15)
[2019-02-12 08:18] LABS: ANION GAP 9 mmol/L (5-15); CALCIUM 7.6 mg/dL (8.5-10.1); CHLORIDE 117 mmol/L (98-107); CREATININE 1.32 mg/dL (0.7-1.3)
[2019-02-12] MEDS ORDERED: FILTER 0.22 MICRON FOR AMIODARONE IV PRN (08:30)
[2019-02-12] MEDS ORDERED: AMIODARONE 50 MG/ML, 3ML IVPush ONE (08:30)
[2019-02-12] MEDS ORDERED: PANTOPRAZOLE 40 MG IV IVPush SCH (08:30)
[2019-02-12] MEDS ORDERED: AMIODARONE 150 MG in DEXTROSE 5% 100 ML IV ONE (08:30)
[2019-02-12] MEDS: LOSARTAN 50MG TABLET PO SCH (08:43)
[2019-02-12] MEDS: SODIUM CHLORIDE 0.9% 1,000 ML IV SCH (08:43)
[2019-02-12] MEDS: ALBUMIN HUMAN 25% 100 ML IV SCH ×2 (09:10→17:52)
[2019-02-12] MEDS: OXYcodone 5 MG/5 ML ORAL.SOL UDC PO PRN (09:10)
[2019-02-12] MEDS: SODIUM CHLORIDE FLUSH 10ML SYR IVF SCH ×2 (09:10→21:53)
[2019-02-12] MEDS ORDERED: GUAIFENESIN 100 MG/5 ML, 10ML UDC ONE (09:20)
[2019-02-12] MEDS: AMIODARONE 900 MG in DEXTROSE 5% 482 ML IV PRN (10:39)
[2019-02-12] MEDS: MEROPENEM 1 GM in SODIUM CHLORIDE 0.9% 100 ML IV SCH ×2 (10:52→23:20)
[2019-02-12] MEDS: NOREPINEPHRINE 16 MG in SODIUM CHLORIDE 0.9% 234 ML IV PRN (11:11)
[2019-02-12] MEDS: VANCOMYCIN 1,700 MG in SODIUM CHLORIDE 0.9% 250 ML IV SCH (12:19)
[2019-02-12] MEDS ORDERED: DO NOT GIVE XX PRN (15:00)
[2019-02-12] MEDS ORDERED: HEPARIN wt. based STROKE protocol MC PRN (15:00)
[2019-02-12] MEDS: HEPARIN 25,000 UNITS/500ML PMX 500 ML IV PRN (15:04)
[2019-02-12] MEDS: ATORVASTATIN 20 MG TABLET PO SCH (17:50)
[2019-02-12] MEDS: PANTOPRAZOLE 40 MG IV IVPush SCH (21:52)
[2019-02-13] MEDS: GUAIFENESIN 100 MG/5 ML, 5ML UDC NG SCH ×3 (02:18→17:30)
[2019-02-13] MEDS: SODIUM CHLORIDE 0.9% 1,000 ML IV SCH (02:19)
[2019-02-13] MEDS: ALBUMIN HUMAN 25% 100 ML IV SCH ×3 (02:19→21:49)
[2019-02-13 04:00] VITALS: BP 112/83
[2019-02-13 04:32] LABS: FIO2 40 %
[2019-02-13 05:09] LABS: MEAN CORPUSCULAR HEMOGLOBIN 28.3 pg (27.5-34.5); MEAN CORPUSCULAR HGB CONC 34.4 g/dL (33.2-36.2); MEAN CORPUSCULAR VOLUME 82.2 fL (81-97); MEAN PLATELET VOLUME 7.9 fL (7.4-10.4); PLATELET COUNT 785 x10^3/uL (130-400); RED BLOOD COUNT 3.32 x10^6/uL (4.38-5.82); RED CELL DISTRIBUTION WIDTH 16.5 % (9.4-14.8)
[2019-02-13 05:45] LABS: BASOPHILS % (AUTO) 0 % (0-1); EOSINOPHILS # (AUTO) 1.08 x10^3/uL (0-0.4); EOSINOPHILS % (AUTO) 6 % (1-7); LYMPHOCYTES # (AUTO) 1.96 x10^3/uL (1-3.4); LYMPHOCYTES % (AUTO) 10 % (22-44); MD SCAN; MONOCYTES # (AUTO) 0.74 x10^3/uL (0.2-0.8); MONOCYTES % (AUTO) 4 % (2-9); NEUTROPHILS # (AUTO) 16.08 x10^3/uL (1.8-6.8); NEUTROPHILS % (AUTO) 81 % (42-75)
[2019-02-13] MEDS ORDERED: AMIODARONE 200 MG TABLET PO SCH (09:00)
[2019-02-13] MEDS ORDERED: GUAIFENESIN 100 MG/5 ML, 10ML UDC ONE ×2 (10:19→18:29)
[2019-02-13] MEDS: POTASSIUM CHLORIDE 10% 20 MEQ/15 ML UDC NG SCH ×2 (10:20→21:49)
[2019-02-13] MEDS: PANTOPRAZOLE 40 MG IV IVPush SCH ×2 (10:21→21:49)
[2019-02-13] MEDS: SODIUM CHLORIDE FLUSH 10ML SYR IVF SCH ×2 (10:27→21:50)
[2019-02-13] MEDS: HEPARIN 25,000 UNITS/500ML PMX 500 ML IV PRN (10:30)
[2019-02-13] MEDS ORDERED: AMIODARONE 150 MG in DEXTROSE 5% 100 ML IV ONE (11:30)
[2019-02-13] MEDS: FUROSEMIDE 20 MG/2 ML IV SCH (12:23)
[2019-02-13] MEDS: MEROPENEM 1 GM in SODIUM CHLORIDE 0.9% 100 ML IV SCH (12:23)
[2019-02-13] MEDS: AMIODARONE 900 MG in DEXTROSE 5% 482 ML IV PRN (12:35)
[2019-02-13] MEDS: OXYcodone 5 MG/5 ML ORAL.SOL UDC PO PRN (16:01)
[2019-02-13] MEDS: ATORVASTATIN 20 MG TABLET PO SCH (18:31)
[2019-02-14] MEDS: MEROPENEM 1 GM in SODIUM CHLORIDE 0.9% 100 ML IV SCH ×3 (00:50→23:37)
[2019-02-14] MEDS: VANCOMYCIN 1,700 MG in SODIUM CHLORIDE 0.9% 250 ML IV SCH (00:50)
[2019-02-14] MEDS: FUROSEMIDE 20 MG/2 ML IV SCH ×3 (00:50→23:37)
[2019-02-14] MEDS: GUAIFENESIN 100 MG/5 ML, 5ML UDC NG SCH ×3 (00:50→17:32)
[2019-02-14] MEDS: SODIUM CHLORIDE 0.9% 1,000 ML IV SCH (00:52)
[2019-02-14] MEDS: HEPARIN 25,000 UNITS/500ML PMX 500 ML IV PRN ×2 (02:06→15:28)
[2019-02-14] MEDS: PROPOFOL 100 ML IV PRN (03:02)
[2019-02-14 04:35] VITALS: BP 111/55
[2019-02-14 04:53] LABS: MEAN CORPUSCULAR HEMOGLOBIN 27.7 pg (27.5-34.5); MEAN CORPUSCULAR HGB CONC 33.2 g/dL (33.2-36.2); MEAN CORPUSCULAR VOLUME 83.3 fL (81-97); MEAN PLATELET VOLUME 8.3 fL (7.4-10.4); PLATELET COUNT 788 x10^3/uL (130-400); RED BLOOD COUNT 3.48 x10^6/uL (4.38-5.82); RED CELL DISTRIBUTION WIDTH 16.5 % (9.4-14.8)
[2019-02-14 05:41] LABS: BASOPHILS # (AUTO) 0.01 x10^3/uL (0-0.1); BASOPHILS % (AUTO) 0 % (0-1); EOSINOPHILS # (AUTO) 1.09 x10^3/uL (0-0.4); EOSINOPHILS % (AUTO) 5 % (1-7); LYMPHOCYTES # (AUTO) 1.88 x10^3/uL (1-3.4); LYMPHOCYTES % (AUTO) 9 % (22-44); MD SCAN; MONOCYTES # (AUTO) 0.16 x10^3/uL (0.2-0.8); MONOCYTES % (AUTO) 1 % (2-9); NEUTROPHILS # (AUTO) 18.22 x10^3/uL (1.8-6.8); NEUTROPHILS % (AUTO) 85 % (42-75)
[2019-02-14] MEDS: POTASSIUM CHLORIDE 10% 20 MEQ/15 ML UDC NG SCH ×2 (07:54→21:50)
[2019-02-14] MEDS: OXYcodone 5 MG/5 ML ORAL.SOL UDC PO PRN ×3 (07:54→21:50)
[2019-02-14] MEDS: AMIODARONE 200 MG TABLET PO SCH ×2 (07:54→21:50)
[2019-02-14] MEDS: PANTOPRAZOLE 40 MG IV IVPush SCH ×2 (07:54→21:50)
[2019-02-14] MEDS: ALBUMIN HUMAN 25% 100 ML IV SCH ×2 (07:55→21:49)
[2019-02-14] MEDS: SODIUM CHLORIDE FLUSH 10ML SYR IVF SCH ×2 (07:55→21:50)
[2019-02-14] MEDS ORDERED: SODIUM CHLORIDE 0.9% 1,000 ML IV SCH (08:30)
[2019-02-14 10:35] LABS: ANION GAP 7 mmol/L (5-15); CALCIUM 8.3 mg/dL (8.5-10.1); CHLORIDE 121 mmol/L (98-107); CREATININE 1.14 mg/dL (0.7-1.3)
[2019-02-14] MEDS: LIDOCAINE-MPF 1%, 2ML ENDO PRN (10:48)
[2019-02-14] MEDS: ATORVASTATIN 20 MG TABLET PO SCH (17:32)
[2019-02-15] MEDS: GUAIFENESIN 100 MG/5 ML, 5ML UDC NG SCH ×3 (01:38→18:28)
[2019-02-15] MEDS: HEPARIN 25,000 UNITS/500ML PMX 500 ML IV PRN ×3 (01:41→22:11)
[2019-02-15] MEDS: ALBUTEROL/IPRATROPIUM 2.5MG/0.5MG, 3 ML NPPB PRN (02:26)
[2019-02-15] MEDS: OXYcodone 5 MG/5 ML ORAL.SOL UDC PO PRN ×2 (02:45→13:20)
[2019-02-15 04:00] VITALS: BP 122/58
[2019-02-15 05:12] LABS: MEAN CORPUSCULAR HGB CONC 33.4 g/dL (33.2-36.2); MEAN CORPUSCULAR VOLUME 83.7 fL (81-97); MEAN PLATELET VOLUME 7.9 fL (7.4-10.4); PLATELET COUNT 708 x10^3/uL (130-400); RED BLOOD COUNT 3.33 x10^6/uL (4.38-5.82); RED CELL DISTRIBUTION WIDTH 16.7 % (9.4-14.8)
[2019-02-15 05:22] LABS: ANION GAP 6 mmol/L (5-15); CALCIUM 8.5 mg/dL (8.5-10.1); CHLORIDE 120 mmol/L (98-107)
[2019-02-15 05:23] LABS: CREATININE 1.12 mg/dL (0.7-1.3); TRIGLYCERIDES 72 mg/dL (50-200)
[2019-02-15 05:41] LABS: MD YES
[2019-02-15 05:43] LABS: ANISOCYTOSIS 1+; BAND#(MANUAL) 0.25 x10^3/uL; BANDS%(MANUAL) 1 % (0-7); EOS#(MANUAL) 1.23 x10^3/uL (0.0-0.4); EOS% (MANUAL) 5 % (1-7); HYPOCHROMIA 1+; LYMPH#(MANUAL) 2.21 x10^3/uL (1-3.4); LYMPHS% (MANUAL) 9 % (22-44); METAMYELOCYTES# (MANUAL) 0.25 x10^3/uL (0-0); METAMYELOCYTES% (MANUAL) 1 % (0-1); MONOS#(MANUAL) 0.74 x10^3/uL (0.3-2.7); MONOS% (MANUAL) 3 % (2-9); POLYCHROMASIA 1+; SEG#(MANUAL) 19.85 x10^3/uL (1.8-6.8); SEGS% (MANUAL) 81 % (42-75)
[2019-02-15 05:45] LABS: <PLATELET ESTIMATE> INCREASED; LARGE PLATELETS 1+; NRBC % (MANUAL) 1 % (0-1)
[2019-02-15] MEDS ORDERED: ALBUMIN HUMAN 25% 100 ML IV SCH (09:00)
[2019-02-15] MEDS: POTASSIUM CHLORIDE 20 MEQ in DEXTROSE 5% 1,000 ML IV SCH ×2 (09:38→22:07)
[2019-02-15] MEDS: PANTOPRAZOLE 40 MG IV IVPush SCH ×2 (09:39→21:30)
[2019-02-15] MEDS: POTASSIUM CHLORIDE 10% 20 MEQ/15 ML UDC NG SCH ×2 (09:39→21:30)
[2019-02-15] MEDS: SODIUM CHLORIDE FLUSH 10ML SYR IVF SCH ×2 (09:39→21:31)
[2019-02-15] MEDS: AMIODARONE 200 MG TABLET PO SCH ×2 (09:40→21:30)
[2019-02-15] MEDS: LIDOCAINE-MPF 1%, 2ML ENDO PRN (10:28)
[2019-02-15] MEDS: MEROPENEM 1 GM in SODIUM CHLORIDE 0.9% 100 ML IV SCH ×2 (12:51→23:29)
[2019-02-15] MEDS: FUROSEMIDE 20 MG/2 ML IV SCH (12:51)
[2019-02-15] MEDS: ATORVASTATIN 20 MG TABLET PO SCH (18:28)
[2019-02-16] MEDS ORDERED: GUAIFENESIN 100 MG/5 ML, 10ML UDC ONE (01:25)
[2019-02-16] MEDS ORDERED: hydrALAzine 20 MG/ML, 1ML ONE (01:25)
[2019-02-16] MEDS ORDERED: hydrALAzine 20 MG/ML, 1ML IV PRN (01:30)
[2019-02-16] MEDS: GUAIFENESIN 100 MG/5 ML, 5ML UDC NG SCH ×2 (01:31→08:54)
[2019-02-16] MEDS: OXYcodone 5 MG/5 ML ORAL.SOL UDC PO PRN ×3 (01:34→20:47)
[2019-02-16 03:49] LABS: ALANINE AMINOTRANSFERASE 37 U/L (12-78); ALBUMIN 2.9 g/dL (3.4-5.0); ANION GAP 7 mmol/L (5-15); CALCIUM 8.1 mg/dL (8.5-10.1); CHLORIDE 118 mmol/L (98-107); CREATININE 1.06 mg/dL (0.7-1.3); MEAN CORPUSCULAR HEMOGLOBIN 28.2 pg (27.5-34.5); MEAN CORPUSCULAR HGB CONC 33.5 g/dL (33.2-36.2); MEAN CORPUSCULAR VOLUME 84.2 fL (81-97); MEAN PLATELET VOLUME 8.1 fL (7.4-10.4); PLATELET COUNT 738 x10^3/uL (130-400); RED BLOOD COUNT 3.54 x10^6/uL (4.38-5.82); RED CELL DISTRIBUTION WIDTH 16.8 % (9.4-14.8)
[2019-02-16 03:51] LABS: ALKALINE PHOSPHATASE 131 U/L (45-117); BILIRUBIN,TOTAL 1.9 mg/dL (0.2-1.0); TOTAL PROTEIN 4.9 g/dL (6.4-8.2)
[2019-02-16 04:00] VITALS: BP 156/60
[2019-02-16] MEDS ORDERED: MAGNESIUM SULFATE PMX 2GM/50ML 50 ML IV ONE (05:00)
[2019-02-16] MEDS: LIDOCAINE-MPF 1%, 2ML ENDO PRN ×2 (05:38→13:08)
[2019-02-16 05:41] LABS: MD YES
[2019-02-16 05:44] LABS: <PLATELET ESTIMATE> INCREASED; ANISOCYTOSIS 1+; BAND#(MANUAL) 0.64 x10^3/uL; BANDS%(MANUAL) 2 % (0-7); BASOS#(MANUAL) 0.64 x10^3/uL (0-0.1); BASOS% (MANUAL) 2 % (0-1); EOS#(MANUAL) 2.55 x10^3/uL (0.0-0.4); EOS% (MANUAL) 8 % (1-7); HYPOCHROMIA 1+; LARGE PLATELETS 1+; LYMPH#(MANUAL) 2.87 x10^3/uL (1-3.4); LYMPHS% (MANUAL) 9 % (22-44); METAMYELOCYTES# (MANUAL) 0.64 x10^3/uL (0-0); METAMYELOCYTES% (MANUAL) 2 % (0-1); MONOS#(MANUAL) 2.23 x10^3/uL (0.3-2.7); MONOS% (MANUAL) 7 % (2-9); POLYCHROMASIA 1+; SEG#(MANUAL) 22.33 x10^3/uL (1.8-6.8); SEGS% (MANUAL) 70 % (42-75)
[2019-02-16] MEDS: HEPARIN 25,000 UNITS/500ML PMX 500 ML IV PRN ×2 (07:44→17:53)
[2019-02-16] MEDS: DEXTROSE 5% 1,000 ML IV SCH (08:53)
[2019-02-16] MEDS: PANTOPRAZOLE 40 MG IV IVPush SCH ×2 (08:54→20:17)
[2019-02-16] MEDS: SODIUM CHLORIDE FLUSH 10ML SYR IVF SCH ×2 (08:54→20:17)
[2019-02-16] MEDS: POTASSIUM CHLORIDE 10% 20 MEQ/15 ML UDC NG SCH ×2 (08:54→20:17)
[2019-02-16] MEDS: AMIODARONE 200 MG TABLET PO SCH ×2 (08:55→20:15)
[2019-02-16] MEDS ORDERED: POTASSIUM PHOSPHATE 44 MEQ in SODIUM CHLORIDE 0.9% 500 ML IV ONE (09:00)
[2019-02-16] MEDS: MEROPENEM 1 GM in SODIUM CHLORIDE 0.9% 100 ML IV SCH ×2 (11:18→20:53)
[2019-02-16] MEDS: FUROSEMIDE 20 MG/2 ML IV SCH (11:18)
[2019-02-16] MEDS ORDERED: MEROPENEM 1 GM in SODIUM CHLORIDE 0.9% 100 ML IV SCH (11:30)
[2019-02-16] MEDS: ATORVASTATIN 20 MG TABLET PO SCH (17:54)
[2019-02-16] MEDS: ALBUTEROL/IPRATROPIUM 2.5MG/0.5MG, 3 ML NPPB PRN (19:18)
[2019-02-16] MEDS: PROPOFOL 100 ML IV PRN (20:46)
[2019-02-17] MEDS: HEPARIN 25,000 UNITS/500ML PMX 500 ML IV PRN ×2 (03:17→22:43)
[2019-02-17 03:40] VITALS: BP 113/47
[2019-02-17 03:48] LABS: MEAN CORPUSCULAR HEMOGLOBIN 28.1 pg (27.5-34.5); MEAN CORPUSCULAR HGB CONC 33.4 g/dL (33.2-36.2); MEAN CORPUSCULAR VOLUME 84.1 fL (81-97); MEAN PLATELET VOLUME 7.9 fL (7.4-10.4); PLATELET COUNT 693 x10^3/uL (130-400); RED BLOOD COUNT 3.41 x10^6/uL (4.38-5.82)
[2019-02-17 03:54] LABS: ANION GAP 5 mmol/L (5-15); CALCIUM 8.1 mg/dL (8.5-10.1); CHLORIDE 118 mmol/L (98-107); CREATININE 1.01 mg/dL (0.7-1.3)
[2019-02-17 04:07] LABS: MD YES
[2019-02-17 04:09] LABS: <PLATELET ESTIMATE> INCREASED; ANISOCYTOSIS 1+; BAND#(MANUAL) 1.27 x10^3/uL; BANDS%(MANUAL) 4 % (0-7); EOS#(MANUAL) 1.91 x10^3/uL (0.0-0.4); EOS% (MANUAL) 6 % (1-7); LARGE PLATELETS 1+; LYMPH#(MANUAL) 4.13 x10^3/uL (1-3.4); LYMPHS% (MANUAL) 13 % (22-44); MONOS#(MANUAL) 2.54 x10^3/uL (0.3-2.7); MONOS% (MANUAL) 8 % (2-9); MYELOCYTES# (MANUAL) 0.32 x10^3/uL (0-0); MYELOCYTES% (MANUAL) 1 % (0-0); NRBC % (MANUAL) 1 % (0-1); POLYCHROMASIA 1+; SEG#(MANUAL) 21.62 x10^3/uL (1.8-6.8); SEGS% (MANUAL) 68 % (42-75)
[2019-02-17] MEDS: MEROPENEM 1 GM in SODIUM CHLORIDE 0.9% 100 ML IV SCH ×3 (05:22→21:07)
[2019-02-17] MEDS: DEXTROSE 5% 1,000 ML IV SCH (05:22)
[2019-02-17] MEDS: POTASSIUM CHLORIDE 10% 20 MEQ/15 ML UDC NG SCH ×2 (08:38→20:56)
[2019-02-17] MEDS: AMIODARONE 200 MG TABLET PO SCH ×2 (08:38→20:57)
[2019-02-17] MEDS: PANTOPRAZOLE 40 MG IV IVPush SCH ×2 (08:38→21:07)
[2019-02-17] MEDS: SODIUM CHLORIDE FLUSH 10ML SYR IVF SCH ×2 (08:39→21:07)
[2019-02-17] MEDS ORDERED: FUROSEMIDE 20 MG/2 ML IV SCH (09:00)
[2019-02-17] MEDS ORDERED: FUROSEMIDE 20 MG/2 ML IV STA (13:08)
[2019-02-17] MEDS: OXYcodone 5 MG/5 ML ORAL.SOL UDC PO PRN (14:09)
[2019-02-17] MEDS: LORazepam 2 MG/ML, 1ML IVPush PRN ×2 (15:26→21:23)
[2019-02-17] MEDS: MORPHINE SULFATE 4 MG/ML, 1ML IV PRN ×2 (15:26→21:24)
[2019-02-17] MEDS: ATORVASTATIN 20 MG TABLET PO SCH (18:00)
[2019-02-18] MEDS: LORazepam 2 MG/ML, 1ML IVPush PRN ×7 (01:46→23:08)
[2019-02-18] MEDS: MORPHINE SULFATE 4 MG/ML, 1ML IV PRN ×4 (01:46→20:52)
[2019-02-18 04:00] VITALS: BP 126/50
[2019-02-18 04:21] LABS: MEAN CORPUSCULAR HEMOGLOBIN 27.6 pg (27.5-34.5); MEAN CORPUSCULAR HGB CONC 32.4 g/dL (33.2-36.2); MEAN CORPUSCULAR VOLUME 85.1 fL (81-97); MEAN PLATELET VOLUME 8.1 fL (7.4-10.4); PLATELET COUNT 748 x10^3/uL (130-400); RED BLOOD COUNT 3.53 x10^6/uL (4.38-5.82); RED CELL DISTRIBUTION WIDTH 17.3 % (9.4-14.8)
[2019-02-18 04:33] LABS: CHLORIDE 116 mmol/L (98-107)
[2019-02-18 04:38] LABS: ANION GAP 5 mmol/L (5-15); CALCIUM 8.2 mg/dL (8.5-10.1); CREATININE 0.98 mg/dL (0.7-1.3)
[2019-02-18] MEDS: MEROPENEM 1 GM in SODIUM CHLORIDE 0.9% 100 ML IV SCH (05:21)
[2019-02-18 05:51] LABS: MD YES
[2019-02-18 05:54] LABS: <PLATELET ESTIMATE> INCREASED; ANISOCYTOSIS 1+; BAND#(MANUAL) 1.45 x10^3/uL; BANDS%(MANUAL) 5 % (0-7); EOS#(MANUAL) 0.87 x10^3/uL (0.0-0.4); EOS% (MANUAL) 3 % (1-7); LARGE PLATELETS 1+; LYMPH#(MANUAL) 6.09 x10^3/uL (1-3.4); LYMPHS% (MANUAL) 21 % (22-44); MONOS#(MANUAL) 1.45 x10^3/uL (0.3-2.7); MONOS% (MANUAL) 5 % (2-9); POLYCHROMASIA 1+; SEG#(MANUAL) 19.14 x10^3/uL (1.8-6.8); SEGS% (MANUAL) 66 % (42-75)
[2019-02-18] MEDS: SODIUM CHLORIDE FLUSH 10ML SYR IVF SCH ×2 (08:53→23:09)
[2019-02-18] MEDS: PANTOPRAZOLE 40 MG IV IVPush SCH ×2 (08:53→23:09)
[2019-02-18] MEDS: AMIODARONE 200 MG TABLET PO SCH (08:55)
[2019-02-18] MEDS: HEPARIN 25,000 UNITS/500ML PMX 500 ML IV PRN (09:30)
[2019-02-18] MEDS ORDERED: LORazepam INTENSOL 2 MG/ML SL PRN (14:00)
[2019-02-18] MEDS ORDERED: morphine SULFATE 125 MG in SODIUM CHLORIDE 0.9% 237.5 ML IV PRN (16:30)
[2019-02-18] MEDS: MORPHINE SULFATE 4 MG/ML, 1ML IVPush PRN ×2 (17:02→22:30)
[2019-02-19] MEDS: LORazepam 2 MG/ML, 1ML IVPush PRN ×6 (01:58→13:58)
[2019-02-19] MEDS: MORPHINE SULFATE 4 MG/ML, 1ML IV PRN (08:27)
[2019-02-19] MEDS ORDERED: SCOPOLAMINE PATCH, 1.5MG PATCH.TD72 TD SCH (09:00)
[2019-02-19] MEDS: SODIUM CHLORIDE FLUSH 10ML SYR IVF SCH (10:18)
== END 2019-02-19 18:45 | disposition expired | DRG 853 ==
LOC: CACL 10:45 → 5SO 16:10 → CACL 16:10 → 5SO 16:23 → OBSVTOIN 01-30 09:11 → CCU 01-31 09:47 → ICU 02-03 13:19 → CCU 02-07 17:15 → 5SO 02-08 12:02 → CCU 02-09 18:32 → 3NW 02-18 21:57
PROVIDERS: ADMIT Internal Medicine Cardiovascular Disease; ATTEND Internal Medicine Cardiovascular Disease
PROC: 0JH606Z Insertion of Pacemaker, Dual Chamber into Chest Subcutaneous Tissue and Fascia, Open Approach (ICD-10-PCS; 2019-01-27)
PROC: 02H63JZ Insertion of Pacemaker Lead into Right Atrium, Percutaneous Approach (ICD-10-PCS; 2019-01-27)
PROC: 02HK3JZ Insertion of Pacemaker Lead into Right Ventricle, Percutaneous Approach (ICD-10-PCS; 2019-01-27)
PROC: 0T9B70Z Drainage of Bladder with Drainage Device, Via Natural or Artificial Opening (ICD-10-PCS; 2019-01-29)
PROC: 5A1945Z Respiratory Ventilation, 24-96 Consecutive Hours (ICD-10-PCS; 2019-01-31)
PROC: 0BH17EZ Insertion of Endotracheal Airway into Trachea, Via Natural or Artificial Opening (ICD-10-PCS; 2019-01-31)
PROC: 02HV33Z Insertion of Infusion Device into Superior Vena Cava, Percutaneous Approach (ICD-10-PCS; 2019-02-01)
PROC: B548ZZA Ultrasonography of Superior Vena Cava, Guidance (ICD-10-PCS; 2019-02-01)
PROC: 5A1955Z Respiratory Ventilation, Greater than 96 Consecutive Hours (ICD-10-PCS; principal; 2019-02-10)
PROC: 0BH18EZ Insertion of Endotracheal Airway into Trachea, Via Natural or Artificial Opening Endoscopic (ICD-10-PCS; 2019-02-10)
DX: A41.9 Sepsis, unspecified organism (principal); G92 Toxic encephalopathy; I21.4 Non-ST elevation (NSTEMI) myocardial infarction; I50.33 Acute on chronic diastolic (congestive) heart failure; I61.9 Nontraumatic intracerebral hemorrhage, unspecified; I63.9 Cerebral infarction, unspecified; J15.211 Pneumonia due to Methicillin susceptible Staphylococcus aureus; J69.0 Pneumonitis due to inhalation of food and vomit; J96.01 Acute respiratory failure with hypoxia; N17.0 Acute kidney failure with tubular necrosis; R65.21 Severe sepsis with septic shock; D68.9 Coagulation defect, unspecified; D68.69 Other thrombophilia; I82.612 Acute embolism and thrombosis of superficial veins of left upper extremity; Z99.11 Dependence on respirator [ventilator] status; E87.0 Hyperosmolality and hypernatremia; I49.5 Sick sinus syndrome; D63.8 Anemia in other chronic diseases classified elsewhere; D69.6 Thrombocytopenia, unspecified; D75.1 Secondary polycythemia; E16.2 Hypoglycemia, unspecified; E78.2 Mixed hyperlipidemia; E83.42 Hypomagnesemia; E86.0 Dehydration; E87.6 Hypokalemia; G93.89 Other specified disorders of brain; H66.90 Otitis media, unspecified, unspecified ear; H70.93 Unspecified mastoiditis, bilateral; I11.0 Hypertensive heart disease with heart failure; I25.10 Atherosclerotic heart disease of native coronary artery without angina pectoris; I35.0 Nonrheumatic aortic (valve) stenosis; I45.5 Other specified heart block; I46.9 Cardiac arrest, cause unspecified; I48.0 Paroxysmal atrial fibrillation; I66.09 Occlusion and stenosis of unspecified middle cerebral artery; R13.10 Dysphagia, unspecified; Z66 Do not resuscitate; Z51.5 Encounter for palliative care; Z79.01 Long term (current) use of anticoagulants; Z79.82 Long term (current) use of aspirin; Z82.49 Family history of ischemic heart disease and other diseases of the circulatory system; Z86.73 Personal history of transient ischemic attack (TIA), and cerebral infarction without residual deficits; Z87.891 Personal history of nicotine dependence; Z95.2 Presence of prosthetic heart valve; Z88.8 Allergy status to other drugs, medicaments and biological substances; Z88.0 Allergy status to penicillin; S20.219A Contusion of unspecified front wall of thorax, initial encounter
CPT/HCPCS: 33208; 36415; 36573; 36600; 70450; 71045; 74018; 74230; 76536; 80048; 80053; 80061; 80162; 80202; 81001; 81003; 82140; 82436; 82533; 82550; 82565; 82570; 82800; 82803; 82805; 82962; 83036; 83605; 83735; 83880; 83935; 84100; 84133; 84300; 84478; 84484; 85025; 85520; 85610; 85730; 87040; 87070; 87077; 87081; 87086; 87186; 87205; 87324; 93005; 93306; 93308; 93880; 93922; 93970; 94002; 94003; 94150; 94640; 94667; 94668; 99156; 99157; C1779; C1785; C1892; G0378; J0461; J1644; J1650; J1940; J1956; J2020; J2185; J2250; J2405; J2704; J3010; J3370; J3480; J7042; J7060; J7070; J7613; J7620; P9047; 92522-GN; C1751; C9113; J0282; J0330; J0360; J1160; J1200; J1815; J2060; J2270; J2370; J3475; J3490; J7030; J7040; J7050; J7120